=== PATIENT | female | born 1955 | race Asian ===

== ENCOUNTER 2020-05-11 15:24 | Outpatient (REF) | payer MEDICARE, OTHER, SELFPAY ==
[2020-05-11 16:26] LABS: MANUAL DIFF FLAG NO
[2020-05-11 16:31] LABS: Basophils Percent Auto 0.7 % (0-2); Eosinophils Absolute Auto 0.1 X10*3/uL (0.0-0.4); Eosinophils Percent Auto 2.1 % (0-4); Hematocrit 36.9 % (37-47); Hemoglobin 12.2 g/dl (12.0-16.0); Lymphocytes Absolute Auto 1.4 X10*3/uL (1.2-4.9); Lymphocytes Percent Auto 48.3 % (20-40); Mean Corpuscular HGB Conc 33.1 g/dl (31.0-35.0); Mean Corpuscular Hemoglobin 29.9 pg (27.0-33.0); Mean Corpuscular Volume 90.4 fL (80-98); Mean Platelet Volume 9.4 fL (9.4-12.3); Monocytes Absolute Auto 0.4 X10*3/uL (0.1-1.2); Monocytes Percent Auto 14.7 % (2-11); Neutrophils Percent Auto 34.2 % (45-73); Platelet Count 185 X10*3/uL (160-400); Red Blood Count 4.08 X10*6/uL (4.20-5.50); White Blood Count 2.9 X10*3/uL (4.8-10.8)
[2020-05-11 16:47] LABS: Alanine Aminotransferase 21 U/L (0-31); Albumin Level 4.3 g/dL (3.5-5.0); Alkaline Phosphatase 60 U/L (39-117); Anion Gap 11 (12-20); Aspartate Amino Transferase 29 U/L (5-31); Bilirubin Total 0.4 mg/dL (0.0-1.0); Blood Urea Nitrogen 16 mg/dL (9-16); C Reactive Protein 0.05 mg/dL (< or = 0.50); Calcium 9.1 mg/dL (8.4-10.2); Carbon Dioxide 25 mmol/L (22-29); Chloride 105 mmol/L (96-108); Estimated Glomerular Filt Rate > 60; Glucose Random 92 mg/dL (60-115); Sodium 137 mmol/L (135-145); Total Protein 8.3 g/dL (6.5-8.0)
[2020-05-11 17:10] LABS: Erythrocyte Sedimentation Rate 25 MM/HR (0-20)
== END 2020-05-11 15:25 | disposition home or self-care (01) ==
LOC: HO.LAB 15:24
PROVIDERS: PCP Internal Medicine; Visit Provider Student in an Organized Health Care Education/Training Program
DX: M35.00 Sjogren syndrome, unspecified (principal); Z79.899 Other long term (current) drug therapy
CPT/HCPCS: 36415; 80053; 85025; 85652; 86140; 99212

== ENCOUNTER → 2020-10-14 15:13 | Outpatient (BNVA) | payer MEDICARE, SELFPAY | PROVIDERS: PCP Internal Medicine; Visit Provider Student in an Organized Health Care Education/Training Program | DX: M35.00 Sjogren syndrome, unspecified (principal) | CPT/HCPCS: 99212 ==

== ENCOUNTER 2020-10-15 07:14 | Outpatient (REF) | payer MEDICARE, SELFPAY ==
[2020-10-15 08:11] LABS: MANUAL DIFF FLAG NO
[2020-10-15 08:19] LABS: Basophils Percent Auto 0.7 % (0-2); Eosinophils Absolute Auto 0.1 X10*3/uL (0.0-0.4); Eosinophils Percent Auto 3.3 % (0-4); Hematocrit 39.1 % (37-47); Hemoglobin 12.8 g/dl (12.0-16.0); Imm Gran Abs Auto 0.01 X10*3/uL (0.00-0.03); Imm Gran Pct Auto 0.3 % (0.0-0.4); Lymphocytes Absolute Auto 1.3 X10*3/uL (1.2-4.9); Lymphocytes Percent Auto 43.9 % (20-40); Mean Corpuscular HGB Conc 32.7 g/dl (31.0-35.0); Mean Corpuscular Hemoglobin 29.8 pg (27.0-33.0); Mean Corpuscular Volume 90.9 fL (80-98); Mean Platelet Volume 9.3 fL (9.4-12.3); Monocytes Absolute Auto 0.5 X10*3/uL (0.1-1.2); Monocytes Percent Auto 17.2 % (2-11); Neutrophils Absolute Auto 1.1 X10*3/uL (2.0-8.3); Neutrophils Percent Auto 34.6 % (45-73); Platelet Count 175 X10*3/uL (160-400); Red Cell Distribution Width 13.3 % (11.0-16.0)
[2020-10-15 08:55] LABS: Alanine Aminotransferase 30 U/L (0-31); Albumin Level 4.3 g/dL (3.5-5.0); Alkaline Phosphatase 52 U/L (39-117); Anion Gap 10 (12-20); Aspartate Amino Transferase 29 U/L (5-31); Bilirubin Total 0.6 mg/dL (0.0-1.0); Blood Urea Nitrogen 14 mg/dL (9-16); C Reactive Protein 0.05 mg/dL (< or = 0.50); Calcium 9.5 mg/dL (8.4-10.2); Carbon Dioxide 27 mmol/L (22-29); Chloride 108 mmol/L (96-108); Estimated Glomerular Filt Rate > 60; Glucose Random 87 mg/dL (60-115); Sodium 141 mmol/L (135-145); Total Protein 8.3 g/dL (6.5-8.0)
[2020-10-15 09:00] LABS: Erythrocyte Sedimentation Rate 19 MM/HR (0-20)
== END 2020-10-15 07:15 | disposition home or self-care (01) ==
LOC: HO.LAB 07:14
PROVIDERS: PCP Internal Medicine; Visit Provider Student in an Organized Health Care Education/Training Program
DX: M35.00 Sjogren syndrome, unspecified (principal)
CPT/HCPCS: 36415; 80053; 85025; 85652; 86140

== ENCOUNTER 2020-10-22 07:33 | Outpatient (REF) | payer BC, SELFPAY ==
[2020-10-22 07:56] LABS: MANUAL DIFF FLAG NO
[2020-10-22 07:58] LABS: Basophils Percent Auto 0.4 % (0-2); Eosinophils Absolute Auto 0.1 X10*3/uL (0.0-0.4); Eosinophils Percent Auto 3.9 % (0-4); Hematocrit 39.1 % (37-47); Hemoglobin 12.6 g/dl (12.0-16.0); Lymphocytes Absolute Auto 1.2 X10*3/uL (1.2-4.9); Lymphocytes Percent Auto 43.1 % (20-40); Mean Corpuscular HGB Conc 32.2 g/dl (31.0-35.0); Mean Corpuscular Hemoglobin 29.4 pg (27.0-33.0); Mean Corpuscular Volume 91.4 fL (80-98); Mean Platelet Volume 9.4 fL (9.4-12.3); Monocytes Absolute Auto 0.4 X10*3/uL (0.1-1.2); Monocytes Percent Auto 15.3 % (2-11); Neutrophils Absolute Auto 1.1 X10*3/uL (2.0-8.3); Neutrophils Percent Auto 37.3 % (45-73); Platelet Count 174 X10*3/uL (160-400); Red Blood Count 4.28 X10*6/uL (4.20-5.50); Red Cell Distribution Width 13.2 % (11.0-16.0); White Blood Count 2.8 X10*3/uL (4.8-10.8)
[2020-10-22 08:26] LABS: Alanine Aminotransferase 21 U/L (0-31); Albumin Level 4.3 g/dL (3.5-5.0); Alkaline Phosphatase 52 U/L (39-117); Anion Gap 10 (12-20); Aspartate Amino Transferase 24 U/L (5-31); Bilirubin Total 0.5 mg/dL (0.0-1.0); Blood Urea Nitrogen 15 mg/dL (9-16); Calcium 9.1 mg/dL (8.4-10.2); Carbon Dioxide 27 mmol/L (22-29); Chloride 107 mmol/L (96-108); Cholesterol 201 mg/dL; Estimated Glomerular Filt Rate > 60; Glucose Fasting 89 mg/dL (60-99); HDL Cholesterol 54 mg/dL; LDL Cholesterol Calculated 123 mg/dl; Potassium 4.1 mmol/L (3.3-5.1); Sodium 140 mmol/L (135-145); Total Protein 8.3 g/dL (6.5-8.0); Triglycerides 122 mg/dL
[2020-10-22 10:04] LABS: Glucose Urine UA NEG (NEG); Leukocyte Esterase Urine NEG (NEG); Nitrite Urine NEG (NEG); Specific Gravity - Urine 1.015 (1.005-1.025); Urine Blood NEG (NEG); Urine Ketones NEG (NEG); Urine Protein NEG (NEG-TRACE)
[2020-10-22 10:06] LABS: Appearance Urine CLEAR; Color Urine YELLOW
== END 2020-10-22 07:34 | disposition home or self-care (01) ==
LOC: HO.LAB 07:33
PROVIDERS: PCP Internal Medicine; Visit Provider Internal Medicine
DX: Z00.00 Encounter for general adult medical examination without abnormal findings (principal); D72.820 Lymphocytosis (symptomatic); D70.9 Neutropenia, unspecified
CPT/HCPCS: 36415; 80053; 80061; 81003; 85025

== ENCOUNTER 2020-11-15 14:42 | Outpatient (REF) | payer BC, SELFPAY ==
--- NOTE | ~2020-11-15 | MM_ITS ---
EXAMINATION: BONE DENSITOMETRY CLINICAL INDICATION: Encounter for screening for osteoporosis. COMPARISON: Previous BD dated 10/30/2018 and baseline BD dated 01/12/2008. TECHNIQUE: Using a [employer] DXA System (software version: 13.1) manufactured by [employer], dual-energy x-ray absorptiometry was performed of the lumbar spine and left hip. The images are of good technical quality. Summary results are attached. FINDINGS: AP SPINE L1-L4: Current: BMD 0.979 g/cm2, Z-score 0.2, T-score -1.7, osteopenia, 0.2% increase from previous, 6.0% decrease from baseline (<5% change is not significant). Prior: BMD 0.977 g/cm2. Baseline: BMD 1.042 g/cm2. LEFT FEMUR, NECK: Current: BMD 0.663 g/cm2, Z-score -1.0, T-score -2.7, osteoporosis. Prior: BMD 0.878 g/cm2. Baseline: BMD 0.887 g/cm2. LEFT FEMUR, TOTAL: Current: BMD 0.620 g/cm2, Z-score -1.6, T-score -3.1, osteoporosis, 24.9% decrease from previous, 26.3% decrease from baseline (<5% change is not significant). Prior: BMD 0.826 g/cm2. Baseline: BMD 0.841 g/cm2. IDENTIFIED RISK FACTORS: Rheumatoid arthritis, osteoporosis, menopause, hysterectomy, bilateral oophorectomy. HISTORY OF FRACTURE: None listed. MEDICATIONS: Calcium or multivitamin. MM/XR DEXA axial skeleton IMPRESSION: 1. DIAGNOSIS: Osteoporosis based on the lowest T-score value of -3.1 in the total femur applying World Health Organization criteria. 2. 10-YEAR FRACTURE RISK PREDICTION, FRAX: Major osteoporotic fracture (clinical spine, forearm, hip or shoulder) 9.8%. Hip fracture 2.8%. 3. Treatment Recommendations: NOF guidelines recommend consideration for treatment in postmenopausal women and men age 50 and older presenting with the following: -A hip or vertebral (clinical or morphometric) fracture. -T-score less than or equal to -2.5 at the femoral neck or spine after appropriate evaluation to exclude secondary causes. -Low bone mass at the hip or spine and a 10-year fracture probability by FRAX of greater than or equal to 3% for hip fracture or greater than or equal to 20% for major osteoporotic fracture based on the [place] adapted WHO algorithm. 4. Other Recommendations: All treatment decisions require clinical judgment and consideration of individual patient factors, including patient preferences, comorbidities, previous drug use, risk factors not captured in the FRAX model (e.g. frailty, falls, vitamin D deficiency, increased bone turnover, interval significant decline in bone density) and possible under or overestimation of fracture risk by FRAX. Additional medical evaluation for secondary cause of low bone mineral density may be appropriate. FUTURE SCAN RECOMMENDATION: People with diagnosed cases of osteoporosis or at high risk for fracture should have regular bone mineral density tests. For patients eligible for Medicare, routine testing is allowed once every 2 years. The testing frequency can be increased to one year for patients who have rapidly progressing disease, those who are receiving or discontinuing medical therapy to restore bone mass, or have additional risk factors.
== END 2020-11-15 14:43 | disposition home or self-care (01) ==
LOC: HO.MAMMO 14:42
PROVIDERS: PCP Internal Medicine; Visit Provider Internal Medicine
DX: Z13.820 Encounter for screening for osteoporosis (principal); M81.0 Age-related osteoporosis without current pathological fracture; M85.80 Other specified disorders of bone density and structure, unspecified site; M06.9 Rheumatoid arthritis, unspecified; Z78.0 Asymptomatic menopausal state; Z90.722 Acquired absence of ovaries, bilateral; Z98.890 Other specified postprocedural states; Z79.899 Other long term (current) drug therapy
CPT/HCPCS: 77080

== ENCOUNTER 2020-11-16 15:12 | Outpatient (REF) | payer BC, SELFPAY ==
--- NOTE | ~2020-11-16 | MM_ITS ---
EXAMINATION: MM SCREENING DIGITAL BREAST TOMOSYNTHESIS, BILATERAL CLINICAL INFORMATION: Screening. Asymptomatic. The lifetime risk of breast cancer based on the Tyrer-Cuzick Model is 9.6%. COMPARISON: Mammography: November 04, 2019 and studies dating back to March 05, 2007 TECHNIQUE: Digital breast tomosynthesis is performed in both the craniocaudal and mediolateral oblique views along with computer-aided detection (CAD). Synthesized 2D images are generated from the tomosynthesis. FINDINGS: The breasts are heterogeneously dense, which may obscure small masses (ACR BI-RADS breast composition Category c). There are no significant masses, abnormal calcifications, or other abnormalities. MM/MM tomosynthesis screening BI IMPRESSION: There are no significant changes from prior study. ASSESSMENT: BI-RADS 1: Negative RECOMMENDATION: Routine annual mammography screening. This patient's information was entered into a reminder system with a target due date for their next mammogram.
== END 2020-11-16 15:13 | disposition home or self-care (01) ==
LOC: HO.MAMMO 15:12
PROVIDERS: Visit Provider Internal Medicine
DX: Z12.31 Encounter for screening mammogram for malignant neoplasm of breast (principal)
CPT/HCPCS: 77063; 77067

== ENCOUNTER 2021-10-20 10:53 | Outpatient (REF) | payer BC, SELFPAY ==
[2021-10-20 11:07] LABS: Basophils Percent Auto 0.8 % (0-2); Eosinophils Percent Auto 1.5 % (0-4); Hematocrit 40.8 % (37.0-47.0); Hemoglobin 13.3 g/dl (12.0-16.0); Lymphocytes Absolute Auto 1.3 X10*3/uL (1.2-4.9); Lymphocytes Percent Auto 47.7 % (20-40); MANUAL DIFF FLAG SCAN; Mean Corpuscular HGB Conc 32.6 g/dl (31.0-35.0); Mean Corpuscular Hemoglobin 30.2 pg (27.0-33.0); Mean Corpuscular Volume 92.5 fL (80.0-98.0); Mean Platelet Volume 9.3 fL (9.4-12.3); Monocytes Absolute Auto 0.4 X10*3/uL (0.1-1.2); Monocytes Percent Auto 15.4 % (2-11); Neutrophils Absolute Auto 0.9 x10*3/uL (2.0-8.3); Neutrophils Percent Auto 34.6 % (45-73); Platelet Count 184 X10*3/uL (160-400); Red Blood Count 4.41 X10*6/uL (4.20-5.50); Red Cell Distribution Width 14.7 % (11.0-16.0); SCAN SMEAR FLAG 1; White Blood Count 2.7 X10*3/uL (4.8-10.8)
[2021-10-20 11:08] LABS: Appearance Urine Clear; Color Urine Yellow; Glucose Urine UA Negative (Negative); Leukocyte Esterase Urine Negative (Negative); Nitrite Urine Negative (Negative); Urine Blood Negative (Negative); Urine Ketones Negative (Negative); Urine Protein Negative (Neg-Trace)
[2021-10-20 11:13] LABS: Bacteria Urine None Seen (None Seen); Hyaline Casts Urine 0-2 /LPF (0-2); RBC Urine 0-2 /HPF (0-2); Squamous Epithelial Cell Urine 0-2 /HPF (0-2); WBC Urine 0-5 /HPF (0-5)
[2021-10-20 11:32] LABS: Alanine Aminotransferase 37 U/L (0-31); Albumin Level 4.2 g/dL (3.5-5.0); Alkaline Phosphatase 47 U/L (39-117); Anion Gap 13 (12-20); Aspartate Amino Transferase 37 U/L (5-31); Bilirubin Total 0.6 mg/dL (0.0-1.0); Blood Urea Nitrogen 15 mg/dL (9-16); Calcium 8.7 mg/dL (8.4-10.2); Carbon Dioxide 26 mmol/L (22-29); Chloride 106 mmol/L (96-108); Cholesterol 261 mg/dL; Estimated Glomerular Filt Rate > 60; Glucose Fasting 81 mg/dL (60-99); HDL Cholesterol 70 mg/dL; LDL Cholesterol Calculated 166 mg/dl; Potassium 4.4 mmol/L (3.3-5.1); Sodium 141 mmol/L (135-145); Total Protein 7.9 g/dL (6.5-8.0); Triglycerides 129 mg/dL
[2021-10-20 11:53] LABS: SLIDE REVIEW VERIFIED
== END 2021-10-20 10:54 | disposition home or self-care (01) ==
LOC: HO.LNP 10:53
PROVIDERS: Visit Provider Internal Medicine
DX: Z00.00 Encounter for general adult medical examination without abnormal findings (principal); D72.820 Lymphocytosis (symptomatic)
CPT/HCPCS: 80053; 80061; 81001; 85025

== ENCOUNTER 2021-11-27 15:08 | Outpatient (REF) | payer BC, SELFPAY ==
--- NOTE | ~2021-11-27 | MM_ITS ---
EXAMINATION: MM SCREENING DIGITAL BREAST TOMOSYNTHESIS, BILATERAL CLINICAL INFORMATION: Screening. Asymptomatic. The lifetime risk of breast cancer based on the Tyrer-Cuzick Model is 9%. COMPARISON: Mammography: 11/16/2020, 11/04/2019, 07/29/2018 TECHNIQUE: Digital breast tomosynthesis is performed in both the craniocaudal and mediolateral oblique views along with computer-aided detection (CAD). Synthesized 2D images are generated from the tomosynthesis. FINDINGS: There are scattered areas of fibroglandular density (ACR BI-RADS breast composition Category b). There are no significant masses, abnormal calcifications, or other abnormalities. There are incidental grouped dermal calcifications lower inner left breast and coarse dermal calcification lower inner right breast. The axilla are unremarkable. There are no significant changes. MM/MM tomosynthesis screening BI IMPRESSION: No mammographic evidence of malignancy. ASSESSMENT: BI-RADS 2: Benign RECOMMENDATION: Routine annual mammography screening. This patient's information was entered into a reminder system with a target due date for their next mammogram.
== END 2021-11-27 15:09 | disposition home or self-care (01) ==
LOC: HO.MAMMO 15:08
PROVIDERS: Visit Provider Dermatology
DX: Z12.31 Encounter for screening mammogram for malignant neoplasm of breast (principal)
CPT/HCPCS: 77063; 77067

== ENCOUNTER 2022-06-27 07:38 | Day surgery (SDC) | payer MEDICARE, SELFPAY ==
--- NOTE | 2022-06-26 08:56 | P.CONAN_ITS ---
Documented by User: Yesi Adair NP 06/26/22 08:57 HPI - Anesthesia Eval Consult details Narrative: 67yo F for Colonoscopy PMFSH Active Problems Active Problems: All Active Problems (Updated 06/22/22 @ 15:34 by Arlene Brooke, RN) Hypergammaglobulinemia (Acute) History of colonoscopy (Acute) Hemorrhoids (Acute) Rectal bleeding (Acute) Sjogrens syndrome (Acute) Past Medical History Medical History (Updated 06/22/22 @ 15:34 by Arlene Brooke, RN) Chronic leukopenia Sjogrens syndrome Family History Family History Brother Lung cancer Surgical History Surgical History (Updated 06/22/22 @ 15:34 by Arlene Brooke, LONA) Hx of colonoscopy Hx of hysterectomy Social History Social History Alcohol intake: never Patient Tobacco Use Status: Never used Tobacco e-Cigarette/Vaping Use: Never Used Use of substances other than those prescribed or required for medical reasons: No Are you DNR?: No Advance Directives: No Advance Directives Information Provided: Yes Meds Allergies Allergy/AdvReac Type Severity Reaction Status Date / Time sulfamethoxazole Allergy Severe ANAPHYLAXIS Verified 06/22/22 15:34 [From BACTRIM] trimethoprim [From BACTRIM] Allergy Severe ANAPHYLAXIS Verified 06/22/22 15:34 Sulfa (Sulfonamide Allergy Unknown mouth Verified 06/22/22 15:34 Antibiotics) swelling/pain Home Medications Medication Instructions Recorded Confirmed Last Taken Type multivitamin 1 tab PO DAILY 01/19/20 06/22/22 Unknown History diclofenac sodium 1 % topical gel 2 g topical QID 05/11/20 06/22/22 Unknown History (Voltaren) omega-3 fatty acids 1,000 mg 1,000 mg PO DAILY 05/11/20 06/22/22 Unknown History capsule (Fish Oil Concentrate) propylene glycol 0.6 % eye drops 1 drp ophthalmic (eye) BID PRN as 10/14/20 06/22/22 Unknown History (Systane Balance) directed alendronate 70 mg tablet 70 mg PO QWEEK 06/22/22 06/22/22 Unknown History valsartan 80 1 tab PO DAILY 06/22/22 06/22/22 06/27/22 History mg-hydrochlorothiazide 12.5 mg tablet amoxicillin 875 mg-potassium 1 tab PO Q12H 06/27/22 06/27/22 Unknown History clavulanate 125 mg tablet Exam Exam Date and Time: June 26, 2022 0856 Pertinent Lab Results Pertinent Lab Results: Laboratory Tests 10/20/21 10/20/21 07:15 07:15 WBC 2.7 L Hgb 13.3 Hct 40.8 Plt Count 184 Sodium 141 Potassium 4.4 Chloride 106 Carbon Dioxide 26 BUN 15 Creatinine 0.82 Assessment and Plan Assessment Anesthesia Assessment: Chart Reviewed Documented by User: Chani Toney MD 06/27/22 08:51 [facility] Past Medical History Medical History (Updated 06/22/22 @ 15:34 by Arlene Brooke RN) Chronic leukopenia Sjogrens syndrome Family History Family History Brother Lung cancer Family history of problems with anesthesia: No Surgical History Surgical History (Updated 06/22/22 @ 15:34 by Arlene Brooke RN) Hx of colonoscopy Hx of hysterectomy History of Problems with Anesthesia: No Social History Social History Alcohol intake: never Patient Tobacco Use Status: Never used Tobacco e-Cigarette/Vaping Use: Never Used Use of substances other than those prescribed or required for medical reasons: No Are you DNR?: No Advance Directives: No Advance Directives Information Provided: Yes Meds Allergies Allergy/AdvReac Type Severity Reaction Status Date / Time sulfamethoxazole Allergy Severe ANAPHYLAXIS Verified 06/22/22 15:34 [From BACTRIM] trimethoprim [From BACTRIM] Allergy Severe ANAPHYLAXIS Verified 06/22/22 15:34 Sulfa (Sulfonamide Allergy Unknown mouth Verified 06/22/22 15:34 Antibiotics) swelling/pain Home Medications Medication Instructions Recorded Confirmed Last Taken Type multivitamin 1 tab PO DAILY 01/19/20 06/22/22 Unknown History diclofenac sodium 1 % topical gel 2 g topical QID 05/11/20 06/22/22 Unknown History (Voltaren) omega-3 fatty acids 1,000 mg 1,000 mg PO DAILY 05/11/20 06/22/22 Unknown History capsule (Fish Oil Concentrate) propylene glycol 0.6 % eye drops 1 drp ophthalmic (eye) BID PRN as 10/14/20 06/22/22 Unknown History (Systane Balance) directed alendronate 70 mg tablet 70 mg PO QWEEK 06/22/22 06/22/22 Unknown History valsartan 80 1 tab PO DAILY 06/22/22 06/22/22 06/27/22 History mg-hydrochlorothiazide 12.5 mg tablet amoxicillin 875 mg-potassium 1 tab PO Q12H 06/27/22 06/27/22 Unknown History clavulanate 125 mg tablet Exam Airway Mallampati Class: II (perm bridge bottom right, too 2 front teeth caps) TM Dist: >3cm Neck ROM: Full Heart: rrr Lungs: cta Assessment and Plan Assessment Anesthesia Assessment: Anesthesia Plan Discussed Final Anesthetic Review Family History of Problems with Anesthesia: No History of Problems with Anesthesia: No NPO: Yes ASA Class: II Final Preanesthetic Review: No Changes in Pt Med Stat, Meds/Allgs Chart Reviewed and Consent Obtained/Reviewed Patient Risk: Intermediate Procedure Risk: Intermediate Anesthetic Plan Anesthetic Plan: MAC: Disposition: Standard PACU
[2022-06-27 08:09] VITALS: BMI 21.8
[2022-06-27 08:13] VITALS: BP 139/84; PULSE 85; RESP 18; TEMP 36.1; O2SAT 95
--- NOTE | 2022-06-27 08:26 | MHC.SHP ---
Pre-Procedural Eval Section A Date of Service: 06/27/22 Section B Chief Complaint: Screening Relevant Family History (Specify if Yes): No Relevant Social History: None Present Medications: see Short Stay Collaborative assessment Medical History: Significant History (Chronic leukopenia Sjogrens syndrome) History of Previous Operations: Relevant previous surgery/procedure and date(s) (hysterectomy) Allergies: Allergies Allergy/AdvReac Type Severity Reaction Status Date / Time sulfamethoxazole Allergy Severe ANAPHYLAXIS Verified 06/22/22 15:34 [From BACTRIM] trimethoprim [From BACTRIM] Allergy Severe ANAPHYLAXIS Verified 06/22/22 15:34 Sulfa (Sulfonamide Allergy Unknown mouth Verified 06/22/22 15:34 Antibiotics) swelling/pain Review of Systems Sugical H&P ROS: Negative: Constitution, Cardiovascular, Respiratory, Neurological, Psychiatric, Hem-Onc, Allergic/Immunologic, Gastrointestinal, Genitourinary, Musculoskeletal, Integumentary, Endocrine and Eyes/Ears/Nose/Throat Exam Surgical H&P Exam: Normal: HEENT, Normal: Heart, Normal: Lungs, Normal: Extremities, Normal: Abdomen, Normal: Skin and Normal: Neurological Plan Diagnosis/Plan: Unchanged I have reviewed the history and physical and performed a pertinent physical examination on my patient. No changes have occurred unless specified. Time Spent With Patient Time: Total time managing care of this patient today ____ minutes.
[2022-06-27 08:41] VITALS: BP 139/84; PULSE 85; RESP 18; TEMP 36.1; O2SAT 95
[2022-06-27] MEDS: Lactated Ringers 1,000 ML 100 ML IVCONT (08:46)
--- NOTE | 2022-06-27 09:29 | P.OP_ITS ---
Operative Note Operative Note Date of Service: 06/27/22 Narrative: Operative Information Procedure Description: Colonoscopy Indication: screening Anesthesia: MAC COLONOSCOPY Instrument: Olympus variable stiffness pediatric scope 190L Colonoscopy Monitoring: Vital signs and clinical assessment, continuous EKG monitoring, Pulse oximetry, Carbon Dioxide monitoring and blood pressure monitoring were done throughout the procedure. Colon withdrawal time was 8 minutes. Procedure: The patient was placed in the left lateral decubitis position and pre-procedure medications were administered. After a digital rectal examination of the ano-rectum, the video colonoscope was inserted into the rectum and advanced through the colon to the cecum/TI. The colonoscope was slowly withdrawn in a retrograde panoramic fashion and the colon mucosa was carefully examined including a retroflexed view of the rectum. Findings and interventions are described below. Procedure Difficulty: moderate due to tortuous colon Findings: Terminal Ileum-normal Cecum:normal Ascending Colon: normal Transverse Colon -normal Descending Colon:normal Sigmoid Colon: normal Rectum: Retroflexion with large internal and external hemorrhoids, at around 10 cm from anal verge on my way out the mucosa seemed v granular and edematous. I did not appreciate this going in, uncertain fi this was due to trauma as the colon was pretty tight. Biopsies were taken. Anorectum - normal Colon preparation: [place] Bowel Preparation Scale Right colon; 2 Transverse colon: 2 Left colon; 2 (0 = Unprepared colon segment with mucosa not seen due to solid stool that cannot be cleared. 1 = Portion of mucosa of the colon segment seen, but other areas of the colon segment not well seen due to staining, residual stool and/or opaque liquid. 2 = Minor amount of residual staining, small fragments of stool and/or opaque liquid, but mucosa of colon segment seen well. 3 = Entire mucosa of colon segment seen well with no residual staining, small fragments of stool or opaque liquid) Impression and Post Procedure Diagnosis: internal and external hemorrhoids abn mucosa rectum Plan: High fiber diet leaflet Avoid straining at stool, epsom salts and sitz bath, anusol supps or cream Repeat Colonoscopy in 10 years if biopsies are normal or earlier if clinically indicated refer Dr Lynn for hemorrhoids Above findings were reviewed with the patient and relevant handouts were provided if indicated.
[2022-06-27 09:35] VITALS: BP 82/49; PULSE 71; RESP 16; TEMP 35.6; O2SAT 98
[2022-06-27 09:50] VITALS: BP 123/77; PULSE 68; RESP 16; TEMP 35.6; O2SAT 99
[2022-06-27 10:13] VITALS: BP 113/65; PULSE 73; RESP 16; TEMP 35.6; O2SAT 98
== END 2022-06-27 10:45 | disposition home or self-care (01) ==
PROVIDERS: PCP Internal Medicine; Visit Provider Internal Medicine Gastroenterology
PROC: 0DJD8ZZ Inspection of Lower Intestinal Tract, Via Natural or Artificial Opening Endoscopic (ICD-10-PCS; CPT 45378; principal; 2022-06-27 09:10)
DX: Z12.11 Encounter for screening for malignant neoplasm of colon (principal); K63.89 Other specified diseases of intestine; K64.8 Other hemorrhoids; K64.4 Residual hemorrhoidal skin tags
CPT/HCPCS: 45380; 88305

== ENCOUNTER → 2022-07-11 14:32 | Outpatient (BNVA) | payer MEDICARE, SELFPAY | PROVIDERS: PCP Internal Medicine; Referring Provider Internal Medicine Gastroenterology; Visit Provider Surgery | DX: K64.8 Other hemorrhoids (principal); K64.4 Residual hemorrhoidal skin tags | CPT/HCPCS: 46600; 99202 ==

== ENCOUNTER 2022-07-31 07:44 | Day surgery (SDC) | payer MEDICARE, SELFPAY ==
--- NOTE | 2022-07-30 10:10 | HO.ANESPROP2 ---
HPI - Anesthesia Eval Consult details Narrative: 67yo F for Exam Under Anesthesia, Hemorrhoidectomy s/p colo 06/2022 with MAC PMFSH Active Problems Active Problems: All Active Problems (Updated 07/11/22 @ 14:57 by Yunior Lynn MD) Hypergammaglobulinemia (Acute) History of colonoscopy (Acute) Hemorrhoids (Acute) Rectal bleeding (Acute) Prolapsed hemorrhoids (Acute) Sjogrens syndrome (Acute) Past Medical History Medical History Chronic leukopenia Prolapsed hemorrhoids Sjogrens syndrome Family History Family History Brother Lung cancer Sister Breast cancer Sister Breast cancer Family history of problems with anesthesia: No Surgical History Surgical History (Updated 08/09/22 @ 11:03 by Kerri Castillo Lele) History of hemorrhoidectomy (~07/31/22) Hx of colonoscopy Hx of hysterectomy History of Problems with Anesthesia: No Social History Social History Alcohol intake: never Patient Tobacco Use Status: Never used Tobacco e-Cigarette/Vaping Use: Never Used Second Hand Smoke Exposure: No Meds Allergies Allergy/AdvReac Type Severity Reaction Status Date / Time sulfamethoxazole Allergy Severe ANAPHYLAXIS Verified 07/26/22 14:40 [From BACTRIM] trimethoprim [From BACTRIM] Allergy Severe ANAPHYLAXIS Verified 07/26/22 14:40 Sulfa (Sulfonamide Allergy Unknown mouth Verified 07/26/22 14:40 Antibiotics) swelling/pain Home Medications Medication Instructions Recorded Confirmed Last Taken Type multivitamin 1 tab PO DAILY 01/19/20 07/26/22 Unknown History diclofenac sodium 1 % topical gel 2 g topical QID 05/11/20 07/26/22 Unknown History (Voltaren) omega-3 fatty acids 1,000 mg 1,000 mg PO DAILY 05/11/20 07/26/22 Unknown History capsule (Fish Oil Concentrate) propylene glycol 0.6 % eye drops 1 drp ophthalmic (eye) BID PRN as 10/14/20 07/26/22 Unknown History (Systane Balance) directed alendronate 70 mg tablet 70 mg PO QWEEK 06/22/22 07/26/22 Unknown History valsartan 80 1 tab PO DAILY 06/22/22 07/26/22 06/27/22 History mg-hydrochlorothiazide 12.5 mg tablet Exam Exam Date and Time: July 30, 2022 101 Assessment and Plan Assessment Anesthesia Assessment: Chart Reviewed Final Anesthetic Review Family History of Problems with Anesthesia: No History of Problems with Anesthesia: No
[2022-07-31] VITALS (11 sets, daily range): BP systolic 128–162; BP diastolic 89–109; PULSE 69–84; RESP 12–16; TEMP 36.1–37; O2SAT 96–100; BMI 21.8
--- NOTE | 2022-07-31 09:00 | MHC.SHP ---
Pre-Procedural Eval Section A Date of Service: 07/31/22 Changes since office visit: No Cold of Flu in the past 2 weeks, No New Medical Problems, No Changes in Medication and No Patient answered all questions The History & Physical has been completed within 30 days and I have reviewed it.: Yes Section B Chief Complaint: Other hemorrhoids Allergies: Allergies Allergy/AdvReac Type Severity Reaction Status Date / Time sulfamethoxazole Allergy Severe ANAPHYLAXIS Verified 07/26/22 14:40 [From BACTRIM] trimethoprim [From BACTRIM] Allergy Severe ANAPHYLAXIS Verified 07/26/22 14:40 Sulfa (Sulfonamide Allergy Unknown mouth Verified 07/26/22 14:40 Antibiotics) swelling/pain Plan I have reviewed the history and physical and performed a pertinent physical examination on my patient. No changes have occurred unless specified. Time Spent With Patient Time: Total time managing care of this patient today ____ minutes.
--- NOTE | 2022-07-31 10:14 | W.PM.OPN ---
Operative Note Operative Note Date of Service: 07/31/22 Narrative: Preop diagnosis: Prolapsing hemorrhoids internal external Postop diagnosis: The same Procedure: Exam under anesthesia hemorrhoidectomy x2 columns Surgeon: Yunior Lynn MD The patient is a 67-year-old female with a long history of problems with hemorrhoids with prolapse and discomfort. She wanted to proceed with hemorrhoidectomy. She understood the technique of the planned procedure as well as the risks, benefits, and alternatives She was brought to the operating room and placed in prone trace-knife position under general anesthesia via endotracheal tube. The buttocks were retracted with wide tape laterally. The perianal area was prepped draped usual sterile fashion. A surgical time-out was done. The patient received Cefotan 2 g IV preoperatively Examination of the anal orifice revealed internal external hemorrhoids with prolapse. I infiltrated the perianal area with lidocaine 1%. I inserted the Brittany Stephenson retractor and examined the anal canal circumferentially. These mixed hemorrhoidal columns were noted on both the left and right side. There were no lesions seen. There was no fissure or induration. I applied a Schulz grasper at the hemorrhoidal column on the left to retract this out in the field. I made a [id number] stitch with a chromic 3-0 its pedicle past the dentate line. I made an incision around this hemorrhoidal column to the perianal skin using blade 15. And excise this hemorrhoidal column above the plane of sphincters using scissors. I closed this incision with running chromic 3-0 stitch. Hemostasis was observed Proceeded to do the same procedure on the larger hemorrhoidal column the right. I applied a Schulz grasper and this to retract this. I made a [id number] stitch at its pedicle using a chromic 3-0. I made an incision around this hemorrhoidal column to the perianal skin using blade 15. I excised this hemorrhoidal column with Metzenbaum scissors above the plane of the sphincters. I closed this incision with a running chromic 3-0 stitch. Additional hemostatic [id number] sutures were placed. Once hemostasis was confirmed, I infiltrated the perianal area with Marcaine 0.5% for postop analgesia. Applied a rolled Gelfoam into the anal canal for further hemostasis The patient was then turned supine and was extubated difficulty and was transferred to the recovery room with stable vital signs.
[2022-07-31] MEDS: fentaNYL citrate/PF 100 MCG/2 ML VIAL 25 MCG IVPUSH ×4 (10:47→11:02)
[2022-07-31] MEDS: oxyCODONE HCl Immed Release 5 MG TABLET PO (10:52)
[2022-07-31] MEDS: ondansetron HCL 4 MG/2 ML VIAL IVPUSH (10:58)
[2022-07-31] MEDS: Ketorolac Tromethamine 30 MG/ML VIAL 15 MG IVPUSH (11:02)
== END 2022-07-31 13:05 | disposition home or self-care (01) ==
PROVIDERS: PCP Internal Medicine; Visit Provider Surgery
PROC: (CPT 46261; principal; 2022-07-31 09:30)
PROC: (CPT 46261; 2022-07-31 09:30)
DX: K64.8 Other hemorrhoids (principal); K64.4 Residual hemorrhoidal skin tags; D72.818 Other decreased white blood cell count; M35.00 Sjogren syndrome, unspecified; Z79.899 Other long term (current) drug therapy; Z88.2 Allergy status to sulfonamides; Z88.8 Allergy status to other drugs, medicaments and biological substances
CPT/HCPCS: 46261; 88304; J0330; J1885; J2250; J2405; J2795; J3010

== ENCOUNTER → 2022-08-13 10:11 | Outpatient (BNVA) | payer MEDICARE, SELFPAY | PROVIDERS: Visit Provider Surgery | DX: Z48.815 Encounter for surgical aftercare following surgery on the digestive system (principal) | CPT/HCPCS: 99212 ==

== ENCOUNTER 2022-09-12 10:03 | Outpatient (AMB) | payer MEDICARE, SELFPAY ==
--- NOTE | 2022-09-12 10:13 | A.OFFVIS_ITS ---
Intake Vital Signs 09/12/22 10:16 Weight 116 lb BP 127/81 Blood Pressure Location Rt brachial Position Sitting Pulse 74 Intake Visit Reasons: 1 mth follow up hemorrhoidectomy Intake Note: This patient presents for a one month follow-up assessment status post hemorrhoidectomy. Patient denies complaints at this time. 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 Accompanied by: Self / Same As Patient Allergies sulfamethoxazole [From BACTRIM] Allergy (Severe, Verified 09/12/22 10:17) ANAPHYLAXIS trimethoprim [From BACTRIM] Allergy (Severe, Verified 09/12/22 10:17) ANAPHYLAXIS Sulfa (Sulfonamide Antibiotics) Allergy (Unknown, Verified 09/12/22 10:17) mouth swelling/pain Medication List - Last Reconciled 09/12/22 by Yunior Lynn MD alendronate 70 mg PO QWEEK diclofenac sodium 1% (Voltaren) 2 grams topical QID docusate sodium (Colace) 100 mg PO BID hydrocortisone-pramoxine 1-1 % (Proctofoam HC) 1 appl DE DAILY PRN ibuprofen 600 mg PO Q6H PRN methylcellulose (laxative) (Citrucel) 500 mg PO BID multivitamin 1 tab PO DAILY omega-3 fatty acids (Fish Oil Concentrate) 1,000 mg PO DAILY propylene glycol 0.6% (Systane Balance) 1 drp ophthalmic (eye) BID PRN valsartan-hydrochlorothiazide 80-12.5 mg 1 tab PO DAILY HPI 1 mth follow up hemorrhoidectomy HPI Details She is here for postop visit after hemorrhoidectomy done last July,. She says she now feels much better. She has no significant pain in the hemorrhoidectomy sites. She has good bowel movements. [facility] Medical History Chronic leukopenia Prolapsed hemorrhoids Sjogrens syndrome Surgical History History of hemorrhoidectomy (~07/31/22) Hx of colonoscopy Hx of hysterectomy Family History Brother Lung cancer Sister Breast cancer Sister Breast cancer Social History Alcohol intake: never Patient Tobacco Use Status: Never used Tobacco e-Cigarette/Vaping Use: Never Used Second Hand Smoke Exposure: No Review of Systems Const Denies chills and Denies fever(s) Card Denies chest pain, Denies dyspnea and Denies dyspnea on exertion Resp Denies cough, Denies dyspnea and Denies dyspnea on exertion GI Denies hematochezia and Denies change in bowel habits Denies hematuria Musc Denies back pain and Denies limited range of motion Neuro Denies focal weakness and Denies convulsions Psych Denies depression and Denies mood swings Physical Exam Vital Signs: Last Vital Signs Pulse 74 09/12/22 10:16 BP 127/81 09/12/22 10:16 Const General: comfortable and no acute distress GI Other: Rectal exam shows hemorrhoidectomy sites to be well-healed Assessment & Plan Assessment & Plan (1) Prolapsed hemorrhoids: Code(s): K64.8 - Other hemorrhoids Plan: Status post hemorrhoidectomy. Her surgical sites are now well healed. She does have residual hemorrhoids but I told her that unless these become problematic in the future, we can leave these alone. I had advised her on avoiding straining and constipation. She can follow up with me on a p.r.n. basis. Coding Level of Care Code Global (05118) Diagnoses Prolapsed hemorrhoids K64.8
[2022-09-12 10:16] VITALS: BP 127/81; PULSE 74
== END 2022-09-12 10:31 | disposition home or self-care (01) ==
PROVIDERS: PCP Internal Medicine; Visit Provider Surgery
DX: K64.8 Other hemorrhoids (principal)
CPT/HCPCS: 99024

== ENCOUNTER → 2022-09-12 10:03 | Outpatient (BNVA) | payer MEDICARE, SELFPAY | PROVIDERS: PCP Internal Medicine; Visit Provider Surgery ==

== ENCOUNTER 2022-10-30 11:47 | Outpatient (REF) | payer MEDICARE, SELFPAY ==
[2022-10-30 11:54] LABS: MANUAL DIFF FLAG NO
[2022-10-30 11:59] LABS: Basophils Percent Auto 0.6 % (0-2); Eosinophils Absolute Auto 0.1 X10*3/uL (0.0-0.4); Eosinophils Percent Auto 2.6 % (0-4); Hematocrit 36.6 % (37.0-47.0); Hemoglobin 11.8 g/dl (12.0-16.0); Imm Gran Abs Auto 0.01 X10*3/uL (0.00-0.03); Imm Gran Pct Auto 0.3 % (0.0-0.4); Lymphocytes Absolute Auto 1.7 X10*3/uL (1.2-4.9); Lymphocytes Percent Auto 47.6 % (20-40); Mean Corpuscular HGB Conc 32.2 g/dl (31.0-35.0); Mean Corpuscular Hemoglobin 29.1 pg (27.0-33.0); Mean Corpuscular Volume 90.4 fL (80.0-98.0); Mean Platelet Volume 9.5 fL (9.4-12.3); Monocytes Absolute Auto 0.5 X10*3/uL (0.1-1.2); Monocytes Percent Auto 13.8 % (2-11); Neutrophils Absolute Auto 1.2 x10*3/uL (2.0-8.3); Neutrophils Percent Auto 35.1 % (45-73); Platelet Count 183 X10*3/uL (160-400); Red Blood Count 4.05 X10*6/uL (4.20-5.50); Red Cell Distribution Width 14.6 % (11.0-16.0); White Blood Count 3.5 X10*3/uL (4.8-10.8)
[2022-10-30 12:07] LABS: Appearance Urine Clear; Color Urine Yellow; Glucose Urine UA Negative (Negative); Leukocyte Esterase Urine Trace (Negative); Nitrite Urine Negative (Negative); Specific Gravity - Urine 1.015 (1.005-1.025); UMIC TRIGGER UACC YES; Urine Blood Negative (Negative); Urine Ketones Negative (Negative); Urine Protein Negative (Neg-Trace)
[2022-10-30 12:11] LABS: Bacteria Urine None Seen (None Seen); Hyaline Casts Urine 0-2 /LPF (0-2); RBC Urine 0-2 /HPF (0-2); Squamous Epithelial Cell Urine 0-2 /HPF (0-2); WBC Urine 0-5 /HPF (0-5)
[2022-10-30 12:58] LABS: Alanine Aminotransferase 29 U/L (0-31); Albumin Level 3.9 g/dL (3.5-5.0); Alkaline Phosphatase 61 U/L (39-117); Anion Gap 9 (12-20); Aspartate Amino Transferase 37 U/L (5-31); Bilirubin Total 0.4 mg/dL (0.0-1.0); Blood Urea Nitrogen 14 mg/dL (9-16); Calcium 9.7 mg/dL (8.4-10.2); Carbon Dioxide 27 mmol/L (22-29); Chloride 107 mmol/L (96-108); Cholesterol 201 mg/dL (<200); Estimated Glomerular Filt Rate > 60; Glucose Fasting 88 mg/dL (60-99); HDL Cholesterol 39 mg/dL (>40); LDL Cholesterol Calculated 109 mg/dL (<100); Potassium 4.2 mmol/L (3.3-5.1); Sodium 139 mmol/L (135-145); Total Protein 8.7 g/dL (6.5-8.0); Triglycerides 267 mg/dL (<150)
== END 2022-10-30 11:48 | disposition home or self-care (01) ==
LOC: HO.LNP 11:47
PROVIDERS: Visit Provider Internal Medicine
DX: Z00.00 Encounter for general adult medical examination without abnormal findings (principal); I10 Essential (primary) hypertension; D72.820 Lymphocytosis (symptomatic)
CPT/HCPCS: 80053; 80061; 81001; 85025

== ENCOUNTER 2022-11-05 16:14 | Outpatient (REF) | payer MEDICARE, SELFPAY ==
[2022-11-05 17:15] LABS: Vitamin D 25-OH Total 72.1 ng/mL (>30)
== END 2022-11-05 16:15 | disposition home or self-care (01) ==
LOC: HO.LNP 16:14
PROVIDERS: Visit Provider Internal Medicine
DX: E55.9 Vitamin D deficiency, unspecified (principal)
CPT/HCPCS: 82306

== ENCOUNTER 2022-11-29 13:49 | Outpatient (REF) | payer MEDICARE, SELFPAY | END 2022-11-29 13:50 | disposition home or self-care (01) | LOC: HO.MAMMO 13:49 | PROVIDERS: Visit Provider Internal Medicine | DX: Z12.31 Encounter for screening mammogram for malignant neoplasm of breast (principal) | CPT/HCPCS: 77063; 77067 ==

== ENCOUNTER → 2022-11-29 14:00 | Outpatient (BNV) | payer MEDICARE, SELFPAY | PROVIDERS: Visit Provider Radiology Diagnostic Radiology | DX: Z12.31 Encounter for screening mammogram for malignant neoplasm of breast (principal) | CPT/HCPCS: 77063; 77067 ==

== ENCOUNTER → 2023-10-23 10:54 | Outpatient (RCR) | payer OTHER, SELFPAY ==
[2020-01-19 15:49] VITALS: BP 160/84; PULSE 78; TEMP 37; O2SAT 96
--- NOTE | 2020-01-19 15:58 | PM.HEMONCPN ---
Medical Summary - Medical Summary Date of Service: 01/19/20 Chief complaint: Follow-up Medical Summary: Long-standing history of Sjogren syndrome. Found to have elevated free kappa light chains in November 2017. Normal lambda light chain and normal kappa lambda ratio of 1.32. Serum electrophoresis in September 2017 showed increase in gammaglobulins, serum immunofixation showed no abnormal bands. No anemia, normal being functions and normal calcium levels. Elevated IgG level is ranging from 2 g to 4 g. No suppression of IgA, IgM mildly suppressed at 35 mg per DL. 24 hour urine immunofixation showed no monoclonal protein. Free kappa light chain slightly elevated at 28.4, kappa/lambda ratio normal 1.32. Interval History Interval history: Patient is here in follow-up. She is doing very well and has no complaints today. She remains on Plaquenil. She has no constitutional symptoms such as fever, chills, night sweats or unexplained weight loss. She has had no interim infections. Both she and her family have been doing well during this pandemic. She denies loss of appetite, fatigue or unexplained weight loss. Review of Systems - Constitutional Reports as per HPI, Reports no additional constitutional complaints [facility] Medical History: Medical History (Last Updated 01/19/20 @ 15:57 by Wilda Preciado RN) Sjogren's disease Smoking status: Never smoker Oncology Screenings - ECOG Performance Status ECOG Performance Status: 0 Home Medications and Allergies Home Medications Medication Instructions Recorded Confirmed Type hydroxychloroquine 1 tab PO DAILY 01/19/20 01/19/20 History lifitegrast [Xiidra] 1 drp OPHTHALMIC (EYE) BID 01/19/20 01/19/20 History multivitamin 1 tab PO DAILY 01/19/20 01/19/20 History Allergies Allergy/AdvReac Type Severity Reaction Status Date / Time sulfamethoxazole Allergy Severe ANAPHYLAXIS Verified 01/19/20 15:52 [From BACTRIM] trimethoprim [From BACTRIM] Allergy Severe ANAPHYLAXIS Verified 01/19/20 15:52 Sulfa (Sulfonamide Allergy Unknown mouth Verified 01/19/20 15:52 Antibiotics) swelling/pain Exam Vital signs: Vital Signs Temp 98.6 F 01/19/20 15:49 Pulse 78 01/19/20 15:49 BP 160/84 H 01/19/20 15:49 Pulse Ox 96 01/19/20 15:49 - Constitutional Present: no acute distress - Routine HEENT Exam Head: Present: normal inspection - Routine Neck Exam Present: full ROM, normal inspection - Routine Respiratory Exam Absent: respiratory distress - Routine Cardiovascular Exam Cardiovascular: Present: S1, S2 Progress Note: A/P (1) Hypergammaglobulinemia Status: Acute Assessment and plan: 1. This is a 64-year-old woman with Sjogren's syndrome presenting with hypergammaglobulinemia and mild leukopenia. There is no monoclonal protein on serum immunofixation, she has normal light chain ratio, no suppression of lambda light chains. Most likely, all of these are markers of inflammation from underlying autoimmune disease and not from plasma cell dyscrasia or primary bone marrow disorder. Serum electrophoresis and immunofixation was repeated in September 2019, this is stable and there is no monoclonal protein. She has mild leukopenia which could be related to her underlying autoimmune disorder as well as being on Plaquenil. No further hematological intervention necessary. She will follow-up as needed. - Time Spent With Patient Total time spent is greater than 50% in coordination of care (as documented) at patient's floor/unit and/or counseling patient: 15 - 24 minutes
--- NOTE | 2020-01-19 16:35 | MHC.HEMONC ---
Pt here for follow up with Dr Mendez. Bp was slightly elevated at 160/84, Dr Mendez aware. Pt has no c/o at this time. No further follow up needed at this time,
== END | disposition home or self-care (01) ==
LOC: HO.ONC 01-19 15:21
PROVIDERS: PCP Internal Medicine; Visit Provider Internal Medicine
DX: D89.2 Hypergammaglobulinemia, unspecified (principal); D72.819 Decreased white blood cell count, unspecified; M35.00 Sjogren syndrome, unspecified; Z79.899 Other long term (current) drug therapy
CPT/HCPCS: 99213

== ENCOUNTER 2023-11-05 11:49 | Outpatient (REF) | payer MEDICARE, SELFPAY ==
[2023-11-05 11:54] LABS: MANUAL DIFF FLAG NO
[2023-11-05 12:25] LABS: Basophils Percent Auto 0.6 % (0-2); Eosinophils Absolute Auto 0.1 X10*3/uL (0.0-0.4); Eosinophils Percent Auto 3.4 % (0-4); Hematocrit 38.5 % (37.0-47.0); Hemoglobin 12.5 g/dl (12.0-16.0); Imm Gran Abs Auto 0.01 X10*3/uL (0.00-0.03); Imm Gran Pct Auto 0.3 % (0.0-0.4); Lymphocytes Absolute Auto 1.5 X10*3/uL (1.2-4.9); Lymphocytes Percent Auto 43.1 % (20-40); Mean Corpuscular HGB Conc 32.5 g/dl (31.0-35.0); Mean Corpuscular Hemoglobin 29.9 pg (27.0-33.0); Mean Corpuscular Volume 92.1 fL (80.0-98.0); Mean Platelet Volume 9.5 fL (9.4-12.3); Monocytes Absolute Auto 0.5 X10*3/uL (0.1-1.2); Monocytes Percent Auto 14.9 % (2-11); Neutrophils Absolute Auto 1.3 x10*3/uL (2.0-8.3); Neutrophils Percent Auto 37.7 % (45-73); Platelet Count 199 X10*3/uL (160-400); Red Blood Count 4.18 X10*6/uL (4.20-5.50); Red Cell Distribution Width 13.8 % (11.0-16.0); White Blood Count 3.5 X10*3/uL (4.8-10.8)
[2023-11-05 12:27] LABS: Appearance Urine Clear; Color Urine Yellow; Glucose Urine UA Negative (Negative); Leukocyte Esterase Urine Trace (Negative); Nitrite Urine Negative (Negative); PH 5.5 (5.0-9.0); UMIC TRIGGER UACC YES; Urine Blood Negative (Negative); Urine Ketones Negative (Negative); Urine Protein Negative (Neg-Trace)
[2023-11-05 12:33] LABS: Bacteria Urine None Seen (None Seen); Hyaline Casts Urine 0-2 /LPF (0-2); RBC Urine 0-2 /HPF (0-2); Squamous Epithelial Cell Urine 0-2 /HPF (0-2); WBC Urine 0-5 /HPF (0-5)
[2023-11-05 13:01] LABS: Alanine Aminotransferase 25 U/L (0-31); Alkaline Phosphatase 54 U/L (39-117); Anion Gap 9 (12-20); Aspartate Amino Transferase 34 U/L (5-31); Bilirubin Total 0.4 mg/dL (0.0-1.0); Blood Urea Nitrogen 19 mg/dL (9-16); Calcium 9.3 mg/dL (8.4-10.2); Carbon Dioxide 26 mmol/L (22-29); Chloride 107 mmol/L (96-108); Cholesterol 204 mg/dL (<200); Estimated Glomerular Filt Rate > 60; Glucose Fasting 87 mg/dL (60-99); HDL Cholesterol 38 mg/dL (>40); LDL Cholesterol Calculated 115 mg/dL (<100); Potassium 4.1 mmol/L (3.3-5.1); Sodium 138 mmol/L (135-145); Total Protein 9.2 g/dL (6.5-8.0); Triglycerides 257 mg/dL (<150)
[2023-11-05 13:10] LABS: Vitamin D 25-OH Total 60.9 ng/mL (>30)
== END 2023-11-05 11:50 | disposition home or self-care (01) ==
LOC: HO.LNP 11:49
PROVIDERS: Visit Provider Internal Medicine
DX: Z00.00 Encounter for general adult medical examination without abnormal findings (principal); D72.820 Lymphocytosis (symptomatic); I10 Essential (primary) hypertension; E55.9 Vitamin D deficiency, unspecified
CPT/HCPCS: 80053; 80061; 81001; 82306; 85025

== ENCOUNTER 2023-12-05 13:00 | Outpatient (REF) | payer MEDICARE, SELFPAY ==
--- NOTE | ~2023-12-05 | MM_ITS ---
EXAMINATION: MM SCREENING DIGITAL BREAST TOMOSYNTHESIS, BILATERAL CLINICAL INFORMATION: Screening. Asymptomatic. COMPARISON: Mammography: Comparison is made with available priors TECHNIQUE: Digital breast mammography with tomosynthesis is performed in both the craniocaudal and mediolateral oblique views along with computer-aided detection (CAD). FINDINGS: The breasts are heterogeneously dense, which may obscure small masses (ACR BI-RADS breast composition Category c). There are no significant masses, abnormal calcifications, or other abnormalities. MM/MM tomosynthesis screening BI IMPRESSION: No mammographic evidence of malignancy. ASSESSMENT: BI-RADS BI-RADS 1 - Negative RECOMMENDATION: Routine annual mammography screening. 1 year F/U This examination should not preclude the clinical evaluation of a suspicious palpable abnormality. This patient's information was entered into a reminder system with a target due date for their next mammogram. Electronically signed by: Tigist Grant DO 12/17/2023 12:14 PM EDT
--- NOTE | ~2023-12-05 | MM_ITS ---
EXAMINATION: BONE DENSITOMETRY CLINICAL INDICATION: Age-related osteoporosis without current pathological fracture. COMPARISON: This is the patient's baseline examination. TECHNIQUE: Using a [employer] DXA System (software version: 13.1) manufactured by [employer], dual-energy x-ray absorptiometry was performed of the lumbar spine and left hip. The images are of good technical quality. Summary results are attached. FINDINGS: LEFT FEMUR, NECK: BMD 0.863 g/cm2, Z-score 0.6, T-score -1.3, osteopenia. LEFT FEMUR, TOTAL: BMD 0.818 g/cm2, Z-score 0.1, T-score -1.5, osteopenia. AP SPINE L1-L4: BMD 0.980 g/cm2, Z-score 0.3, T-score -1.7, osteopenia. IDENTIFIED RISK FACTORS: Rheumatoid arthritis, osteoporosis, menopause, hysterectomy, bilateral oophorectomy. HISTORY OF FRACTURE: None listed. MEDICATIONS: Calcium supplements or multivitamin, vitamin D, bisphosphonate. MM/XR DEXA axial skeleton IMPRESSION: 1. DIAGNOSIS: Osteopenia based on the lowest T-score value of -1.7 in the lumbar spine applying World Health Organization criteria. 2. 10-YEAR FRACTURE RISK PREDICTION, FRAX: Not performed in this patient on estrogen or bone building treatments. 3. Treatment Recommendations: NOF guidelines recommend consideration for treatment in postmenopausal women and men age 50 and older presenting with the following: -A hip or vertebral (clinical or morphometric) fracture. -T-score less than or equal to -2.5 at the femoral neck or spine after appropriate evaluation to exclude secondary causes. -Low bone mass at the hip or spine and a 10-year fracture probability by FRAX of greater than or equal to 3% for hip fracture or greater than or equal to 20% for major osteoporotic fracture based on the [place] adapted WHO algorithm. 4. Other Recommendations: All treatment decisions require clinical judgment and consideration of individual patient factors, including patient preferences, comorbidities, previous drug use, risk factors not captured in the FRAX model (e.g. frailty, falls, vitamin D deficiency, increased bone turnover, interval significant decline in bone density) and possible under or overestimation of fracture risk by FRAX. Additional medical evaluation for secondary cause of low bone mineral density may be appropriate. FUTURE SCAN RECOMMENDATION: People with diagnosed cases of osteoporosis or at high risk for fracture should have regular bone mineral density tests. For patients eligible for Medicare, routine testing is allowed once every 2 years. The testing frequency can be increased to one year for patients who have rapidly progressing disease, those who are receiving or discontinuing medical therapy to restore bone mass, or have additional risk factors. Electronically signed by: Joni Amaya MD 12/06/2023 02:37 PM EDT
== END 2023-12-05 13:01 | disposition home or self-care (01) ==
LOC: HO.MAMMO 13:00
PROVIDERS: PCP Internal Medicine; Visit Provider Internal Medicine
DX: Z12.31 Encounter for screening mammogram for malignant neoplasm of breast (principal); M81.0 Age-related osteoporosis without current pathological fracture
CPT/HCPCS: 77063; 77067; 77080

== ENCOUNTER → 2023-12-05 13:00 | Outpatient (BNV) | payer MEDICARE, SELFPAY | PROVIDERS: PCP Internal Medicine; Visit Provider Internal Medicine | DX: Z12.31 Encounter for screening mammogram for malignant neoplasm of breast (principal) | CPT/HCPCS: 77063; 77067 ==

== ENCOUNTER 2024-11-05 12:25 | Outpatient (REF) | payer MEDICARE, SELFPAY ==
--- OUTSIDE RECORDS SUMMARY | 2023-11-05 03:15 | XMS_ITS ---
Author Organization Anton Reyes MD Address [address] [place], [place] [id number] Care Team Providers Care It Teacher Name Role Phone Anton Reyes Primary Care Provider Results Component Value Reference Range Notes Complete Blood Count Auto Di ff Reviewed date:11/05/2023 06:01:24 PM Interpretation: Performing Lab:[facility], [address] [place] [phone] Notes/Report: White Blood Count 3.5 4.8-10.8 X10*3/uL Red Blood Count 4.18 4.20-5.50 X10*6/uL Hemoglobin 12.5 12.0-16.0 g/dl Hematocrit 38.5 37.0-47.0 % Mean Corpuscular Volume 92.1 80.0-98.0 fL Mean Corpuscular Hemoglobin 29.9 27.0-33.0 pg Mean Corpuscular HGB Conc 32.5 31.0-35.0 g/dl Red Cell Distribution Width 13.8 11.0-16.0 % Platelet Count 199 160-400 X10*3/uL Mean Platelet Volume 9.5 9.4-12.3 fL Neutrophils Percent Auto 37.7 45-73 % Imm Gran Pct Auto 0.3 0.0-0.4 % Lymphocytes Percent Auto 43.1 20-40 % Monocytes Percent Auto 14.9 2-11 % Eosinophils Percent Auto 3.4 0-4 % Basophils Percent Auto 0.6 0-2 % NRBC Pct Auto 0.0 0.0-0.2 /100WBC Neutrophils Absolute Auto 1.3 2.0-8.3 x10*3/u L Imm Gran Abs Auto 0.01 0.00-0.03 X10*3/uL Lymphocytes Absolute Auto 1.5 1.2-4.9 X10*3/u L Monocytes Absolute Auto 0.5 0.1-1.2 X10*3/uL Eosinophils Absolute Auto 0.1 0.0-0.4 X10*3/u L Basophils Absolute Auto 0.0 0.0-0.2 X10*3/uL NRBC Abs Auto 0.000 0.0-0.012 X10*3/uL Comprehensive [place]. Panel Fa st Reviewed date:11/06/2023 08:46:34 AM Interpretation: Performing Lab:[facility], [address] [place] [phone] Notes/Report: Sodium 138 135-145 mmol/L Potassium 4.1 3.3-5.1 mmol/L Chloride 107 96-108 mmol/L Carbon Dioxide 26 22-29 mmol/L Anion Gap 9 12-20 Blood Urea Nitrogen 19 9-16 mg/dL Creatinine 0.80 0.5-1.4 mg/dL Estimated Glomerular Filt Rate > 60 NOTE: For -[place]aur[place] individuals, multiply the result by 1.210. Chronic Kidney Disease: Estimated GFR < 60 mL/min/1.73m2 Severe Kidney Disease: Estimated GFR < 15 mL/min/1.73m2 Glucose Fasting 87 60-99 mg/dL Calcium 9.3 8.4-10.2 mg/dL Bilirubin Total 0.4 0.0-1.0 mg/dL Aspartate Amino Transferase 34 5-31 U/L Alanine Aminotransferase 25 0-31 U/L Total Protein 9.2 6.5-8.0 g/dL Albumin Level 4.0 3.5-5.0 g/dL Alkaline Phosphatase 54 39-117 U/L Lipid Panel Reviewed date:11/05/2023 05:58:32 PM Interpretation: Performing Lab:[facility], [address] [place] [phone] Notes/Report: Triglycerides 257 <150 mg/dL Desirable Triglyceride: less than 150 mg/dL Borderline High Triglyceride 150-199 mg/dL High Triglyceride: 200-499 mg/dL Very High Triglyceride: greater than or equal to 5OO mg/dL Cholesterol 204 <200 mg/dL Desirable Cholesterol: less than 200 mg/dL Borderline High Cholesterol: 200-239 mg/dL High Cholesterol: greater than 239 mg/dL LDL Cholesterol Calculated 115 <100 mg/dL Desirable LDL: less than 100 mg/dL Near Optimal/Above Optimal LDL: 110-129 mg/dL Borderline High LDL: 130-159 mg/dL High LDL: 160-189 mg/dL Very High LDL: greater than or equal to 190 mg/dL HDL Cholesterol 38 >40 mg/dL Desirable HDL: greater than 40 mg/dL Note: This HDL assay may give artificially low results in patients with liver disease. Vitamin D 25-OH Total Reviewed date:11/05/2023 05:57:29 PM Interpretation: Performing Lab:[facility], [address] [place] [phone] Notes/Report: Vitamin D 25-OH Total 60.9 >30 ng/mL Health Based Reference Values* < 20 ng/mL Deficient 20-30 ng/mL Insufficient > 30 ng/mL Sufficient *Jethro CRISOSTOMO. N Engl J Med. 2007;357:266-280 Care must be taken in interpreting Vitamin D results from different laboratories and methodologies. Published data demonstrated that results from patients undergoing hemodialysis may show a negative bias when tested with various automated 25-OH vitamin D assays when compared to LC-MS/MS. When testing samples from patients whose predominant form of Vitamin D is Vitamin D2, such as patients receiving Vitamin D2 supplementation, results that are subtherapeutic should be confirmed with another method such as LC-MS/MS. UA ClnCatch+Micro w/rflx Cul t Reviewed date:11/06/2023 08:45:14 AM Interpretation: Performing Lab:[facility], [address] [place] [phone] Notes/Report: Urine, Clean Catch Color Urine Yellow Appearance Urine Clear PH 5.5 5.0-9.0 Glucose Urine UA Negative Negative mg/dL Urine Blood Negative Negative Specific [place] - Urine 1.010 1.005-1.025 Urine Protein Negative Neg-Trace mg/dL Urine Ketones Negative Negative mg/dL Nitrite Urine Negative Negative Leukocyte Esterase Urine Trace Negative RBC Urine 0-2 0-2 /HPF WBC Urine 0-5 0-5 /HPF Squamous Epithelial Cell Urine 0-2 0-2 /HPF Bacteria Urine None Seen None Seen Hyaline Casts Urine 0-2 0-2 /LPF REASON FOR VISIT YEARLY FASTING LABS Immunizations Vaccine Route Administration Date Status Comme nts Influenza High Dose IM Intramuscular 11/05/2023 Administer ed Encounters Encounter Location Date Provider Diagnosis Anton Reyes MD [address] [place] [address] [address] [place], [place] [id number] 11/05/2023 Anton Reyes Annual physical exam Z00.00 ; Encounter for immunization Z23 ; Lymphocytosis (symptomatic) D72.820 ; Essential hypertension I10 and Vitamin D deficiency E55.9 Assessments Encounter Date Diagnosis (ICD Code) Assessment Notes Treatment Notes Treatment Clinical Notes Section Notes 11/05/2023 Annual physical exam (ICD-10 - Z00.00) 11/05/2023 Encounter for immunization (ICD-10 - Z23) 11/05/2023 Lymphocytosis (symptomatic) (ICD-10 - D72.820) 11/05/2023 Essential hypertension (ICD-10 - I10) 11/05/2023 Vitamin D deficiency (ICD-10 - E55.9) Plan Of Treatment Next Appt Details Provider Name:Anton Pineda ier, 11/12/2024 02:30:00 PM, [address] [place] [address], [address], [place], [place], [phone], Progress Notes * Leilani YOUNG MDOB:[birth year] (69 yo F)Acc No.[id number]:11/05/2023 Progress Note Patient: Chantell BENITEZ Leilani CHAPA M Provider: Darling Reyes MD :1955 A ge:68 Y S ex:Female Date:11/05/2023 Address:[address] [place], [place] [id number] Subjective: * Chief Complaints: * 1 . YEARLY FASTING LABS. * Medical History: Objective: * Vitals: Assessment: * Assessment: 1. E ncounter for immunization - Z23 (Primary) 2 . A nnual physical exam - Z00.00 3 . L ymphocytosis (symptomatic) - D72.820 4 . E ssential hypertension - I10 5 . V itamin D deficiency - E55.9 Plan: * Treatment: 2. L ymphocytosis (symptomatic) L AB: Complete Blood Count Auto Diff (Collection Date & Time - 11/05/2023 07:15 AM) L AB: Comprehensive [place]. Panel Fast (Collection Date & Time - 11/05/2023 07:15 AM) L AB: Lipid Panel (Collection Date & Time - 11/05/2023 07:15 AM) L AB: Vitamin D 25-OH Total (Collection Date & Time - 11/05/2023 07:15 AM) L AB: UA ClnCatch+Micro w/rflx Cult (Collection Date & Time - 11/05/2023 07:15 AM) 3. E ssential hypertension L AB: Complete Blood Count Auto Diff (Collection Date & Time - 11/05/2023 07:15 AM) L AB: Comprehensive [place]. Panel Fast (Collection Date & Time - 11/05/2023 07:15 AM) L AB: Lipid Panel (Collection Date & Time - 11/05/2023 07:15 AM) L AB: Vitamin D 25-OH Total (Collection Date & Time - 11/05/2023 07:15 AM) L AB: UA ClnCatch+Micro w/rflx Cult (Collection Date & Time - 11/05/2023 07:15 AM) 4. V itamin D deficiency L AB: Complete Blood Count Auto Diff (Collection Date & Time - 11/05/2023 07:15 AM) L AB: Comprehensive [place]. Panel Fast (Collection Date & Time - 11/05/2023 07:15 AM) L AB: Lipid Panel (Collection Date & Time - 11/05/2023 07:15 AM) L AB: Vitamin D 25-OH Total (Collection Date & Time - 11/05/2023 07:15 AM) L AB: UA ClnCatch+Micro w/rflx Cult (Collection Date & Time - 11/05/2023 07:15 AM) * Immunizations: Influenza High Dose : 0.5 mL (Dose No:1) (Route: Intramuscular) given by Arlene Mcintyre , Office Staff on Left Deltoid * Procedure Codes: 9 0662 FLU VACC PRSV FREE INC ANTIG, 63277 IMMUNIZATION ADMIN, 67882 VENIPUNCT, ROUTINE* * * The named appointment provid er may or may not be the originator of this progress note, and it is not deemed complete until electronically signed by the appointment provider. Sign off status: Pending * Provider: Darling Reyes MD Date: 11/05/2023 Generated for Yana cantu/Nelly/Anup on: 11/05/2024 04:39 PM EDT
--- OUTSIDE RECORDS SUMMARY | 2023-11-12 10:30 | XMS_ITS ---
Author Organization nAton Reyes MD Address [address] [place], [place] [id number] Care Team Providers Care Weave Defect Charting Clerk Name Role Phone Anton Reyes Primary Care Provider Allergies Allergen (clinical drug ingredient) Drug/Non Drug Allergy documented on EMR Reaction Allergy Type Onset Date Status sulfamethoxazole / trimethoprim Bactrim rash Drug Allergy Active REASON FOR VISIT ANNUAL EXAM Medications Medication SIG (Take, Route, Frequency, Duration) Notes Start Date End Date Status Alaway 0.025 % 1 drop into affected eye Ophthalmic Twice a day Not-Takin lalitha Naprosyn 500 MG 1 tablet as needed Orally every 12 hrs for 90 days 02/14/2012 Not-Taking Diprolene AF 0.05 % 1 application to affected area Externally Once a day for 14 days 07/16/2011 Not-Takin g ProAir HFA 108 (90 Base) MCG/ACT 2 puffs as needed Inhalation every 4 hrs for 30 days 08/31/2013 Not-Taking Flonase 50 MCG/ACT 1 spray in each nost ril Nasally Once a day for 30 day(s) 07/06/2014 Not-Taking Valsartan-hydroCHLOROthi azide 80-12.5 MG TAKE ONE TABLET BY MOUTH EVERY DAY for 30 Active Mupirocin Calcium 2 % 1 application Exte rnally Twice a day for 5 day(s) 05/15/2022 Active Alendronate Sodium 70 MG TAKE ONE TABLET BY MOUTH ONCE A WEEK. TAKE 30 MINUTE BEFORE FIRST FOOD & BEVERAGE OF THE DAY. TAKE WITH 8 OZ OF WATER for 28 Active Xiidra 5 % 1 drop into affected eye Ophthalmic Twice a day Active Social History Tobacco Use: Social History Observation Description Date Details (start date - stop date) Never Smoker NA - NA Tobacco Use/Smoking Question Answer Notes Patient is a nonsmoker Additional Findings: Tobacco Non-User Cu rrent non-smoker, currently using no form of tobacco Alcohol Screen Question Answer Notes Did you have a drink containing alcohol in the p ast year? No Points 0 Interpretation Negative Vital Signs Blood pressure systolic 130 mm Hg 11/12/19 24 Blood pressure diastolic 64 mm Hg 024 Height 64 in 11/12/2023 Weight 122 lbs 11/12/2023 BMI 20.94 kg/m2 11/12/2023 Encounters Encounter Location Date Provider Diagnosis Anton Reyes MD [address] [place] [address] Drive [address] [place] [phone] 11/12/2023 Anton Reyes Age-related osteoporosis without current pathological fracture M81.0 ; Annual physical exam Z00.00 ; Vitamin D deficiency E55.9 ; Neutropenia, unspecified type D70.9 ; Essential hypertension I10 ; Depression screening Z13.31 and Colon cancer screening Z12.11 Assessments Encounter Date Diagnosis (ICD Code) Assessment Notes Treatment Notes Treatment Clinical Notes Section Notes 11/12/2023 Age-related osteoporosis without current pathological fracture (ICD-10 - M81.0) order faxed to [facility] dept 11/12/2023 Annual physical exam (ICD-10 - Z00.00) labs reviewed and discussed with patient 11/12/2023 Vitamin D deficiency (ICD-10 - E55.9) taking calcium with vit d and level is 60. enciuraged to continue walking, will continue current regiment 11/12/2023 Neutropenia, unspecified type (ICD-10 - D70.9) stable, will continue to monitor 11/12/2023 Essential hypertension (ICD-10 - I10) doing well on one half tab, at goal, will continue current regiment regiment 11/12/2023 Depression screening (ICD-10 - Z13.31) negative screen 11/12/2023 Colon cancer screening (ICD-10 - Z12.11) sent home with stool cards will retun to office when complete Plan Of Treatment Treatment Notes Assessment Notes Age-related osteoporosis wit hout current pathological fracture order faxed to [facility] dept Annual physical exam labs reviewed and d iscussed with patient Vitamin D deficiency taking calcium with vit d and level is 60. enciuraged to continue walking, will continue current regiment Neutropenia, unspecified type stable, wi ll continue to monitor Essential hypertension doing well on one half tab, at goal, will continue current regiment regiment Depression screening negative screen Colon cancer screening sent home with st ool cards will retun to office when complete Pending Test Test Name Order Date BONE DENSITY DEXA 11/12/2023 Next Appt Details Follow Up: 6 Months, Reason: Provider Name:Anton Pineda ier, 11/12/2024 02:30:00 PM, [address], [address], [place], [place], [phone], Progress Notes * Leilani YOUNG MDOB:[birth year] (68 yo F)Acc No.[id number]:11/12/2023 Progress Notes Patient: Chantell Leilani Hernandes Provider: Lalitha Reyes MD :1955 A ge:68 Y S ex:Female Date:11/12/2023 Address:[address] [place], [place] [phone] Subjective: * Chief Complaints: * A NNUAL EXAM * HPI: D epression Screening: PHQ-9 L ittle interest or pleasure in doing things N ot at all, F eeling down, depressed, or hopeless N ot at all, T rouble falling or staying asleep, or sleeping too much N ot at all, F eeling tired or having little energy N ot at all, P oor appetite or overeating N ot at all, F eeling bad about yourself or that you are a failure, or have let yourself or your family down N ot at all, T rouble concentrating on things, such as reading the newspaper or watching television N ot at all, M oving or speaking so slowly that other people could have noticed; or the opposite, being so fidgety or restless that you have been moving around a lot more than usual N ot at all, T houghts that you would be better off or of hurting yourself in some way N ot at all, T otal Score 0 . I nterpretation and Intervention D epression Screening Findings N egative, F ollow-Up for Depression : review of PHQ-9 found negative result, no follow-up needed. patient is a 68 yo female here for annual visit with review of recent labs and follow up of chronic issues,. C ommunication Needs: Communication Needs D oes the patient have a hearing impairment N o, D oes the patient have a vision impairment? Y es, I f yes, what is the vision impairment? G lasses, D oes the patient have a cognition impairment? N o. F all Risk: History H ave you had any falls with injury in the past year? N o, H ave you had two or more falls in the past year? N o. S VEENA Questions: SDOH Questions I n the past year have you been worried about losing housing? N o, I n the past year have you or any family members you live with been unable to get any of the following when it was really needed? Check all that apply: N one. * ROS: G eneral/Constitutional: Patient denies f atigue , headache. C hange in appetite?denies. C hills d enies. F ever d enies. O phthalmologic: Blurred vision d enies. D ischarge d enies. P ain d enies. E NT: Patient denies d ecreased sense of smell , any loss of taste , sore throat. D ecreased hearing d enies. S ore throat d enies. S wollen glands d enies. E ndocrine: Cold intolerance d enies. E xcessive thirst d enies. H eat intolerance d enies. W eight loss d enies. R espiratory: Cough d enies. S hortness of breath at rest d enies. S hortness of breath with exertion d enies. W heezing d enies. C ardiovascular: Chest pain at rest d enies. C hest pain with exertion?denies. I rregular heartbeat d enies. S hortness of breath d enies. ? G astrointestinal: Abdominal pain d enies. C hange in bowel habits d enies. D iarrhea d enies. N ausea d enies. R ectal bleeding d enies. V omiting d enies . G enitourinary: Blood in urine d enies. D ifficulty urinating d enies. F requent urination d enies. U rinary incontinence D enies. M usculoskeletal: Patient denies m uscle aches. P ainful joints d enies. W eakness d enies. P eripheral Vascular: Patient denies r ed and blue toes. S kin: Dry skin d enies. I tching d enies. D enies?Mole(s), changes in moles, new moles or any lesions of concern. D enies P hotosensitivity. R gorge d enies. N eurologic: Dizziness d enies. F ainting d enies. H eadache?denies. * Medical History: * Surgical History: * Hospitalization/Major Diagno stic Procedure: * Family History: F ather: 90 yrs, diagnosed with Alzheimer disease. M other: 45 yrs, diagnosed with Cancer. 2 brother(s) , 3 sister(s) . 1 son(s) , 1 daughter(s) - healthy. . 2 brothers, 3 sisters - healthy, Denies mental health/substance abuse family history, No pertinent family medical history, Denies mental health/substance abuse family history. * Social History: T obacco Use: T obacco Use/Smoking P atient is a n onsmoker, A dditional Findings: Tobacco Non-User C urrent non-smoker, currently using no form of tobacco. D rugs/Alcohol: A lcohol Screen D id you have a drink containing alcohol in the past year? N o, P oints 0 , I nterpretation N egative. M iscellaneous: C affeine: yes, frequency:, 1 cup per day. Children: yes. no Community involvements. Exercise: yes, 2-3 times per week walks everyday for 1 hour. Home smoke detector use: yes. Living with: spouse. Marital status: . Occupation: weeks/months/years, works full-time. Pets: none. no Travel outside of the [place]. * Medications: T akingXiidra 5 % Solution 1 drop into affected eye Ophthalmic Twice a dayMupirocin Calcium 2 % Cream 1 application Externally Twice a dayAlendronate Sodium 70 MG Tablet TAKE ONE TABLET BY MOUTH ONCE A WEEK. TAKE 30 MINUTE BEFORE FIRST FOOD & BEVERAGE OF THE DAY. TAKE WITH 8 OZ OF WATER Valsartan-hydroCHLOROthiazide 80-12.5 MG Tablet TAKE ONE TABLET BY MOUTH EVERY DAY Taking Xiidra 5 % Solution 1 drop into affected eye Ophthalmic Twice a dayTaking Mupirocin Calcium 2 % Cream 1 application Externally Twice a dayTaking Alendronate Sodium 70 MG Tablet TAKE ONE TABLET BY MOUTH ONCE A WEEK. TAKE 30 MINUTE BEFORE FIRST FOOD & BEVERAGE OF THE DAY. TAKE WITH 8 OZ OF WATER Taking Valsartan-hydroCHLOROthiazide 80-12.5 MG Tablet TAKE ONE TABLET BY MOUTH EVERY DAY Not-Taking/PRNAlaway 0.025 % Solution 1 drop into affected eye Ophthalmic Twice a dayFlonase 50 MCG/ACT Suspension 1 spray in each nostril Nasally Once a dayDiprolene AF 0.05 % Cream 1 application to affected area Externally Once a dayProAir HFA 108 (90 Base) MCG/ACT Aerosol Solution 2 puffs as needed Inhalation every 4 hrsNaprosyn 500 MG Tablet 1 tablet as needed Orally every 12 hrsMedication List reviewed and reconciled with the patientNot-Taking/PRN Alaway 0.025 % Solution 1 drop into affected eye Ophthalmic Twice a dayNot-Taking/PRN Flonase 50 MCG/ACT Suspension 1 spray in each nostril Nasally Once a dayNot-Taking/PRN Diprolene AF 0.05 % Cream 1 application to affected area Externally Once a dayNot-Taking/PRN ProAir HFA 108 (90 Base) MCG/ACT Aerosol Solution 2 puffs as needed Inhalation every 4 hrsNot- Taking/PRN Naprosyn 500 MG Tablet 1 tablet as needed Orally every 12 hrsMedication List reviewed and reconciled with the patient * Allergies: B actrim: scooter[Allergies Verified] Objective: * Vitals: H t: 64, Wt:122, BMI:20.94, BP:130/64. * P ast Orders: L ab:Complete Blood Count Auto Diff (Order Date - 11/05/2023) (Collection Date - 11/05/2023) Value Reference Range White Blood Count 3.5 L 4.8-10.8 - X10*3/uL Red Blood Count 4.18 L 4.20-5.50 - X10*6/uL Hemoglobin 12.5 12.0-16.0 - g/dl Hematocrit 38.5 37.0-47.0 - % Mean Corpuscular Volume 92.1 80.0-98.0 - fL Mean Corpuscular Hemoglobin 29.9 27.0-33.0 - pg Mean Corpuscular HGB Conc 32.5 31.0-35.0 - g/ dl Red Cell Distribution Width 13.8 11.0-16.0 - % Platelet Count 199 160-400 - X10*3/uL Mean Platelet Volume 9.5 9.4-12.3 - fL Neutrophils Percent Auto 37.7 L 45-73 - % Imm Gran Pct Auto 0.3 0.0-0.4 - % Lymphocytes Percent Auto 43.1 H 20-40 - % Monocytes Percent Auto 14.9 H 2-11 - % Eosinophils Percent Auto 3.4 0-4 - % Basophils Percent Auto 0.6 0-2 - % NRBC Pct Auto 0.0 0.0-0.2 - /100WBC Neutrophils Absolute Auto 1.3 L 2.0-8.3 - x10* 3/uL Imm Gran Abs Auto 0.01 0.00-0.03 - X10*3/uL Lymphocytes Absolute Auto 1.5 1.2-4.9 - X10* 3/uL Monocytes Absolute Auto 0.5 0.1-1.2 - X10*3/ uL Eosinophils Absolute Auto 0.1 0.0-0.4 - X10* 3/uL Basophils Absolute Auto 0.0 0.0-0.2 - X10*3/ uL NRBC Abs Auto 0.000 0.0-0.012 - X10*3/uL L ab:Comprehensive [place]. Panel Fast (Order Date - 11/05/2023) (Collection Date - 11/05/2023) Value Reference Range Sodium 138 135-145 - mmol/L Bilirubin Total 0.4 0.0-1.0 - mg/dL Aspartate Amino Transferase 34 H 5-31 - U/L Alanine Aminotransferase 25 0-31 - U/L Total Protein 9.2 H 6.5-8.0 - g/dL Albumin Level 4.0 3.5-5.0 - g/dL Alkaline Phosphatase 54 39-117 - U/L Potassium 4.1 3.3-5.1 - mmol/L Chloride 107 96-108 - mmol/L Carbon Dioxide 26 22-29 - mmol/L Anion Gap 9 L 12-20 - Blood Urea Nitrogen 19 H 9-16 - mg/dL Creatinine 0.80 0.5-1.4 - mg/dL Estimated Glomerular Filt Rate > 60 - Glucose Fasting 87 60-99 - mg/dL Calcium 9.3 8.4-10.2 - mg/dL L ab:Lipid Panel (Order Date - 11/05/2023) (Collection Date - 11/05/2023) Value Reference Range Triglycerides 257 H <150 - mg/dL Cholesterol 204 H <200 - mg/dL LDL Cholesterol Calculated 115 H <100 - mg/dL HDL Cholesterol 38 L >40 - mg/dL L ab:Vitamin D 25-OH Total (Order Date - 11/05/2023) (Collection Date - 11/05/2023) Value Reference Range Vitamin D 25-OH Total 60.9 >30 - ng/mL L ab:UA ClnCatch+Micro w/rflx Cult (Order Date - 11/05/2023) (Collection Date - 11/05/2023) Value Reference Range Color Urine Yellow - Appearance Urine Clear - PH 5.5 5.0-9.0 - Glucose Urine UA Negative Negative - mg/dL Urine Blood Negative Negative - Specific [place] - Urine 1.010 1.005-1.025 - Urine Protein Negative Neg-Trace - mg/dL Urine Ketones Negative Negative - mg/dL Nitrite Urine Negative Negative - Leukocyte Esterase Urine Trace A Negative - RBC Urine 0-2 0-2 - /HPF WBC Urine 0-5 0-5 - /HPF Squamous Epithelial Cell Urine 0-2 0-2 - /HP F Bacteria Urine None Seen None Seen - Hyaline Casts Urine 0-2 0-2 - /LPF * Examination: G eneral Examination: GENERAL APPEARANCE: w ell developed, well nourished, in no acute distress. HEAD: n ormocephalic, atraumatic. EYES: p upils equal, round, reactive to light and accommodation, sclera non-icteric. EARS: n ormal. ORAL CAVITY: m ucosa moist. THROAT: c lear. NECK/THYROID: n chloé supple, full range of motion, no cervical lymphadenopathy, no bruits. SKIN: w arm and dry, no suspicious lesions. HEART: r egular rate and rhythm, S1, S2 normal, no murmurs.? LUNGS: c lear to auscultation bilaterally. BREASTS: N o mass, no lump. ABDOMEN: s oft, nontender, nondistended, bowel sounds present, normal, no organomegaly , no masses palpable. RECTAL EXAM: t ight anus from hemmorhid surgery will send with card. FEMALE GENITOURINARY: h ad hysterctomy. EXTREMITIES: n o clubbing, cyanosis, or edema. NEUROLOGIC: n onfocal, motor strength normal upper and lower extremities, sensory exam intact. Assessment: * Assessment: 1. A nnual physical exam - Z00.00 (Primary) 2 . A ge-related osteoporosis without current pathological fracture - M81.0 3 . V itamin D deficiency - E55.9 4 . N eutropenia, unspecified type - D70.9 5 . E ssential hypertension - I10 6 . D epression screening - Z13.31 7 . C olon cancer screening - Z12.11 Plan: * Treatment: 2. A ge-related osteoporosis without current pathological fracture I maging: BONE DENSITY DEXA Notes: order faxed to [facility] dept 3. V itamin D deficiency Notes: taking calcium with vit d and level is 60. enciuraged to continue walking, will continue current regiment 4. N eutropenia, unspecified type Notes: stable, will continue to monitor 5. E ssential hypertension Notes: doing well on one half tab, at goal, will continue current regiment regiment 6. D epression screening Notes: negative screen 7. C olon cancer screening Notes: sent home with stool cards will retun to office when complete * Procedure Codes: * Follow Up: 6 Months * * Sign off status: Completed true * Provider: Lalitha Reyes MD Date: 11/12/2023 Generated for Printi alondra/Nelly/eTransmitting on: 11/05/2024 04:39 PM EDT History and Physical Notes * HPI (History of Present Illness) Category Sub-Category Detail Notes Category Not es Depression Screening PHQ-9 Little inte rest or pleasure in doing things: Not at all patient is a 68 yo female here for annual visit with review of recent labs and follow up of chronic issues, Feeling down, depressed, or hopeless: No t at all Trouble falling or staying asleep, or sl eeping too much: Not at all Feeling tired or having little energy: N ot at all Poor appetite or overeating: Not at all Feeling bad about yourself o r that you are a failure, or have let yourself or your family down: Not at all Trouble concentrating on thi ngs, such as reading the newspaper or watching television: Not at all Moving or speaking so slowly that other people could have noticed; or the opposite, being so fidgety or restless that you have been moving around a lot more than usual: Not at all Thoughts that you would be b mukund off or of hurting yourself in some way: Not at all Total Score: 0 Interpretation and Intervention Depression Yaya ortiz Findings: Negative Follow-Up for Depression: : review of PH Q-9 found negative result, no follow-up needed SDOH Questions SDOH Questions In the past year have you been worried about losing housing?: No In the past year have you or any family members you live with been unable to get any of the following when it was really needed? Check all that apply:: None Fall Risk History Have you had any falls with injury i n the past year?: No Have you had two or more falls in the st year?: No Communication Needs Communication Needs Does the patient have a hearing impairment: No Does the patient have a vision impairmen t?: Yes If yes, what is the vision impairment?: Glasses Does the patient have a cognition impair ment?: No Examination Category Sub-Category Detail Notes Category Not es General Examination GENERAL APPEARANCE: well dev eloped, well nourished, in no acute distress HEAD: normocephalic, atrau matic EYES: pupils equal, round, reactive to light and accommodation, sclera non-icteric EARS: normal THROAT: clear NECK/THYROID: neck supple, full ra nge of motion, no cervical lymphadenopathy, no bruits HEART: regular rate and rhy thm, S1, S2 normal, no murmurs LUNGS: clear to auscultatio n bilaterally ABDOMEN: soft, nontender, non distended, bowel sounds present, normal, no organomegaly , no masses palpable NEUROLOGIC: nonfocal, motor stre ngth normal upper and lower extremities, sensory exam intact SKIN: warm and dry, no mata picious lesions EXTREMITIES: no clubbing, cyanosi s, or edema BREASTS: No mass, no lump RECTAL EXAM: tight anus from hemm orhid surgery will send with card FEMALE GENITOURINARY: had hysterctomy ORAL CAVITY: mucosa moist
--- OUTSIDE RECORDS SUMMARY | 2023-11-14 10:51 | XMS_ITS ---
Author Organization Anton Reyes MD Address [address] [place] [phone] Care Team Providers Care Fiscal Manager Name Role Phone Anton Reyes Primary Care Provider [phone] Results Component Value Reference Range Notes Occult Blood, Stool, Guaiac Reviewed date:12/27/2023 03:08:44 PM Interpretation:Negative Performing Lab: Notes/Report: Negative Occult Blood, Stool, Guaiac Neg REASON FOR VISIT Stool card Encounters Encounter Location Date Provider Diagnosis Anton Reyes MD [address] [place] [address] [place] [phone] 11/14/2023 Anton Reyes Colon cancer screening Z12.11 Assessments Encounter Date Diagnosis (ICD Code) Assessment Notes Treatment Notes Treatment Clinical Notes Section Notes 11/14/2023 Colon cancer screening (ICD-10 - Z12.11) Plan Of Treatment Next Appt Details Provider Name:Anton Pineda ier, 11/12/2024 02:30:00 PM, [address] [place] [address], [address] [facility], [place], [place], [phone], Progress Notes * Leilani YOUNG MDOB:[birth year] (68 yo F)Acc No.[id number]:11/14/2023 Patient: Chantell Leilani Hernandes :1955 A ge:68 Y S ex:Female Address:[address] [place] [id number] Subjective: * Chief Complaints: * S tool card * Medical History: * Surgical History: * Hospitalization/Major Diagno stic Procedure: * Medications: Objective: Assessment: * Assessment: 1. C lindsay cancer screening - Z12.11 (Primary) Plan: * Treatment: Value Reference Range O ccult Blood, Stool, Guaiac Neg * Procedure Codes: 8 2270 TEST FOR BLOOD, FECES * true * Date: Generated for Yana cantu/Nelly/Bouchrasmitting on: 0 11/05/2024 04:39 PM EDT
--- OUTSIDE RECORDS SUMMARY | 2024-05-12 10:00 | XMS_ITS ---
Author Organization Anton Reyes MD Address [address] [place], [place] [id number] Care Team Providers Care Cloth Dyeing Range Tender Name Role Phone Anton Reyes Primary Care Provider Allergies Allergen (clinical drug ingredient) Drug/Non Drug Allergy documented on EMR Reaction Allergy Type Onset Date Status sulfamethoxazole / trimethoprim Bactrim rash Drug Allergy Active REASON FOR VISIT 6 months Medications Medication SIG (Take, Route, Frequency, Duration) Notes Start Date End Date Status Diprolene AF 0.05 % 1 application to affected area Externally Once a day for 14 days 07/16/2011 Not-Takin lalitha ProAir HFA 108 (90 Base) MCG/ACT 2 puffs as needed Inhalation every 4 hrs for 30 days 08/31/2013 Not-Taking Alendronate Sodium 70 MG TAKE ONE TABLET BY MOUTH ONCE A WEEK. TAKE 30 MINUTE BEFORE FIRST FOOD & BEVERAGE OF THE DAY. TAKE WITH 8 OZ OF WATER Active Naprosyn 500 MG 1 tablet as needed Orally every 12 hrs for 90 days 02/14/2012 Not-Taking Valsartan-hydroCHLOROthi azide 80-12.5 MG TAKE ONE TABLET BY MOUTH EVERY DAY Active [place] 0.025 % 1 drop into affected eye Ophthalmic Twice a day Not-Takin g Flonase 50 MCG/ACT 1 spray in each nost ril Nasally Once a day for 30 day(s) 07/06/2014 Not-Taking Mupirocin Calcium 2 % 1 application Exte rnally Twice a day for 5 day(s) 05/15/2022 Active Xiidra 5 % 1 drop into affected eye Ophthalmic Twice a day Active Vital Signs Blood pressure systolic 104 mm Hg 05/13/19 25 Blood pressure diastolic 72 mm Hg 025 Height 64 in 05/12/2024 Weight 128 lbs 05/12/2024 BMI 21.97 kg/m2 05/12/2024 weight is up 6 pounds since 11-12-23 Encounters Encounter Location Date Provider Diagnosis Anton Reyes MD [address] [place] [address] [place] [phone] 05/12/2024 Anton Reyes Essential hypertension I10 and Age-related osteoporosis without current pathological fracture M81.0 Assessments Encounter Date Diagnosis (ICD Code) Assessment Notes Treatment Notes Treatment Clinical Notes Section Notes 05/12/2024 Essential hypertension (ICD-10 - I10) well controlled, will continue current regiment 05/12/2024 Age-related osteoporosis without current pathological fracture (ICD-10 - M81.0) doing much better on the meds and with weights, will continue current regiment Plan Of Treatment Medication Medication Name Sig Start Date Stop Date Notes Alendronate Sodium 70 MG TAKE ONE TABLET BY MOUTH ONCE A WEEK. TAKE 30 MINUTE BEFORE FIRST FOOD & BEVERAGE OF THE DAY. TAKE WITH 8 OZ OF WATER Valsartan-hydroCHLOROthiazid e 80-12.5 MG TAKE ONE TABLET BY MOUTH EVERY DAY Treatment Notes Assessment Notes Essential hypertension well controlled, will continue current regiment Age-related osteoporosis wit hout current pathological fracture doing much better on the meds and with weights, will continue current regiment Next Appt Details Provider Name:Anton Pineda ier, 11/12/2024 02:30:00 PM, [address] [place] [address], [address], [place], [place], [phone], Progress Notes * Leilani YOUNG MDOB:[birth year] (69 yo F)Acc No.[id number]:05/12/2024 Progress Notes Patient: Chantell BENITEZ Leilani CHAPA Provider: Lalitha Reyes MD :1955 A ge:69 Y S ex:Female Date:05/12/2024 Address:[address] [place], [place] [id number] Subjective: * Chief Complaints: * 6 months * HPI: S ymptom(s): patient is a 69 yo female here for 6 month follow up visit/ doing well. walking outside. doing ellipticql at home in winter. * ROS: G eneral/Constitutional: Denies C hills. D enies F atigue. D enies F ever. D enies H eadache. E NT: Patient denies d ecreased sense of smell, any loss of taste, sore throat. D enies S ore throat. R espiratory: Denies S hortness of breath at rest. D enies S hortness of breath with exertion. G astrointestinal: Denies D iarrhea. D enies N ausea. M usculoskeletal: Patient denies m uscle aches. P eripheral Vascular: Patient denies r ed and blue toes. * Medical History: * Surgical History: * Hospitalization/Major Diagno stic Procedure: * Medications: T akingXiidra 5 % Solution 1 drop into affected eye Ophthalmic Twice a day Mupirocin Calcium 2 % Cream 1 application Externally Twice a day Alendronate Sodium 70 MG Tablet TAKE ONE TABLET BY MOUTH ONCE A WEEK. TAKE 30 MINUTE BEFORE FIRST FOOD & BEVERAGE OF THE DAY. TAKE WITH 8 OZ OF WATER Valsartan-hydroCHLOROthiazide 80- 12.5 MG Tablet TAKE ONE TABLET BY MOUTH EVERY DAY Taking Xiidra 5 % Solution 1 drop into affected eye Ophthalmic Twice a day Taking Mupirocin Calcium 2 % Cream 1 application Externally Twice a day Taking Alendronate Sodium 70 MG Tablet TAKE ONE TABLET BY MOUTH ONCE A WEEK. TAKE 30 MINUTE BEFORE FIRST FOOD & BEVERAGE OF THE DAY. TAKE WITH 8 OZ OF WATER Taking Valsartan-hydroCHLOROthiazide 80-12.5 MG Tablet TAKE ONE TABLET BY MOUTH EVERY DAY Not-Taking/PRNAlaway 0.025 % Solution 1 drop into affected eye Ophthalmic Twice a day Flonase 50 MCG/ACT Suspension 1 spray in each nostril Nasally Once a day Diprolene AF 0.05 % Cream 1 application to affected area Externally Once a day ProAir HFA 108 (90 Base) MCG/ACT Aerosol Solution 2 puffs as needed Inhalation every 4 hrs Naprosyn 500 MG Tablet 1 tablet as needed Orally every 12 hrs Medication List reviewed and reconciled with the patientNot-Taking/PRN Alaway 0.025 % Solution 1 drop into affected eye Ophthalmic Twice a day Not-Taking/PRN Flonase 50 MCG/ACT Suspension 1 spray in each nostril Nasally Once a day Not-Taking/PRN Diprolene AF 0.05 % Cream 1 application to affected area Externally Once a day Not-Taking/PRN ProAir HFA 108 (90 Base) MCG/ACT Aerosol Solution 2 puffs as needed Inhalation every 4 hrs Not-Taking/PRN Naprosyn 500 MG Tablet 1 tablet as needed Orally every 12 hrs Medication List reviewed and reconciled with the patient * Allergies: B actrim: rashyes[Allergies Verified] Objective: * Vitals: H t: 64, Wt: 128, BMI:21.97, BP:104/72, Wt-k.06. weight is up 6 pounds since 11-12-23. * Examination: G eneral Examination: GENERAL APPEARANCE: a lert, well hydrated, in no distress, female. HEAD: n ormocephalic. SKIN: g ood turgor. HEART: r egular rate and rhythm, no murmurs, rubs, gallops.? LUNGS: n o wheezes, rales, rhonchi, good air movement, clear to auscultation bilaterally. Assessment: * Assessment: 1. E ssential hypertension - I10 (Primary) 2 . A ge-related osteoporosis without current pathological fracture - M81.0 Plan: * Treatment: 2. A ge-related osteoporosis without current pathological fracture Continue Alendronate Sodium Tablet, 70 MG, TAKE ONE TABLET BY MOUTH ONCE A WEEK. TAKE 30 MINUTE BEFORE FIRST FOOD & BEVERAGE OF THE DAY. TAKE WITH 8 OZ OF WATER. Notes: doing much better on the meds and with weights, will continue current regiment * Procedure Codes: * * Sign off status: Completed true * Provider: Lalitha Reyes MD Date: 0 05/12/2024 Generated for Yana cantu/Nelly/Souravitting on: 0 11/05/2024 04:40 PM EDT History and Physical Notes * HPI (History of Present Illness) Category Sub-Category Detail Notes Category Not es Symptom(s) patient is a 69 yo female here for 6 month follow up visit/ doing well. walking outside. doing ellipticql at home in winter Examination Category Sub-Category Detail Notes Category Not es General Examination GENERAL APPEARANCE: alert, w ell hydrated, in no distress, female HEAD: normocephalic HEART: regular rate and rhy thm, no murmurs, rubs, gallops LUNGS: no wheezes, rales, r honchi, good air movement, clear to auscultation bilaterally SKIN: good turgor
--- OUTSIDE RECORDS SUMMARY | 2024-11-05 04:00 | XMS_ITS ---
Author Organization Anton Reyes MD Address [address] [place], [place] [phone] Care Team Providers Care Reel Tender Name Role Phone Anton Reyes Primary Care Provider Results Component Value Reference Range Notes UA ClnCatch+Micro w/rflx Cul t (Not yet reviewed by provider) Interpretation: Performing Lab:[facility], [address] [place] [phone] Notes/Report: [id number] Urine, Clean Catch Color Urine Yellow Appearance Urine Clear PH 6.0 5.0-9.0 Glucose Urine UA Negative Negative mg/dL Urine Blood Negative Negative Specific [place] - Urine 1.010 1.005-1.025 Urine Protein Negative Neg-Trace mg/dL Urine Ketones Negative Negative mg/dL Nitrite Urine Negative Negative Leukocyte Esterase Urine Negative Negative RBC Urine 0-2 0-2 /HPF WBC Urine 0-5 0-5 /HPF Squamous Epithelial Cell Urine 0-2 0-2 /HPF Bacteria Urine None Seen None Seen Hyaline Casts Urine 0-2 0-2 /LPF Complete Blood Count Auto Di ff Reviewed date:11/05/2024 01:02:05 PM Interpretation: Performing Lab:[facility], [address] [place] [phone] Notes/Report: White Blood Count 3.2 4.8-10.8 X10*3/uL Red Blood Count 4.12 4.20-5.50 X10*6/uL Hemoglobin 12.4 12.0-16.0 g/dl Hematocrit 37.7 37.0-47.0 % Mean Corpuscular Volume 91.5 80.0-98.0 fL Mean Corpuscular Hemoglobin 30.1 27.0-33.0 pg Mean Corpuscular HGB Conc 32.9 31.0-35.0 g/dl Red Cell Distribution Width 14.0 11.0-16.0 % Platelet Count 198 160-400 X10*3/uL Mean Platelet Volume 9.5 9.4-12.3 fL Neutrophils Percent Auto 33.1 45-73 % Imm Gran Pct Auto 0.3 0.0-0.4 % Lymphocytes Percent Auto 48.1 20-40 % Monocytes Percent Auto 15.7 2-11 % Eosinophils Percent Auto 2.2 0-4 % Basophils Percent Auto 0.6 0-2 % NRBC Pct Auto 0.0 0.0-0.2 /100WBC Neutrophils Absolute Auto 1.1 2.0-8.3 x10*3/u L Imm Gran Abs Auto 0.01 0.00-0.03 X10*3/uL Lymphocytes Absolute Auto 1.6 1.2-4.9 X10*3/u L Monocytes Absolute Auto 0.5 0.1-1.2 X10*3/uL Eosinophils Absolute Auto 0.1 0.0-0.4 X10*3/u L Basophils Absolute Auto 0.0 0.0-0.2 X10*3/uL NRBC Abs Auto 0.000 0.0-0.012 X10*3/uL Comprehensive [place]. Panel Fa st Reviewed date:11/05/2024 04:35:39 PM Interpretation: Performing Lab:[facility], [address] [place] [phone] Notes/Report: Sodium 140 135-145 mmol/L Potassium 4.1 3.3-5.1 mmol/L Chloride 108 96-108 mmol/L Carbon Dioxide 26 22-29 mmol/L Anion Gap 10 12-20 Blood Urea Nitrogen 14 9-16 mg/dL Creatinine 0.89 0.5-1.4 mg/dL Estimated Glomerular Filt Rate > 60 Chronic Kidney Disease: Estimated GFR < 60 mL/min/1.73m2 Severe Kidney Disease: Estimated GFR < 15 mL/min/1.73m2 Glucose Fasting 88 60-99 mg/dL Calcium 9.0 8.4-10.2 mg/dL Bilirubin Total 0.4 0.0-1.0 mg/dL Aspartate Amino Transferase 36 5-31 U/L Alanine Aminotransferase 19 0-31 U/L Total Protein 8.9 6.5-8.0 g/dL Albumin Level 4.1 3.5-5.0 g/dL Alkaline Phosphatase 49 39-117 U/L Lipid Panel Reviewed date:11/05/2024 02:14:13 PM Interpretation: Performing Lab:[address] [phone] Notes/Report: Triglycerides 222 <150 mg/dL Desirable Triglyceride: less than 150 mg/dL Borderline High Triglyceride 150-199 mg/dL High Triglyceride: 200-499 mg/dL Very High Triglyceride: greater than or equal to 5OO mg/dL Cholesterol 212 <200 mg/dL Desirable Cholesterol: less than 200 mg/dL Borderline High Cholesterol: 200-239 mg/dL High Cholesterol: greater than 239 mg/dL LDL Cholesterol Calculated 126 <100 mg/dL Desirable LDL: less than 100 mg/dL Near Optimal/Above Optimal LDL: 110-129 mg/dL Borderline High LDL: 130-159 mg/dL High LDL: 160-189 mg/dL Very High LDL: greater than or equal to 190 mg/dL HDL Cholesterol 42 >40 mg/dL Desirable HDL: greater than 40 mg/dL Note: This HDL assay may give artificially low results in patients with liver disease. Vitamin D 25-OH Total Reviewed date:11/05/2024 04:36:31 PM Interpretation: Performing Lab:[address] [phone] Notes/Report: Vitamin D 25-OH Total 73.7 >30 ng/mL Health Based Reference Values* < 20 ng/mL Deficient 20-30 ng/mL Insufficient > 30 ng/mL Sufficient *Jethro CRISOSTOMO. N Engl J Med. 2007;357:266-280 There is no well-established upper level of normal vitamin D levels. Some laboratories use 50 ng/mL as an upper limit of normal. However, toxicity is patient-dependent and may occur at any level. Careful correlation with the patient's presentation is necessary and, if there is concern for vitamin D toxicity, treatment should be considered irrespective of the serum level. Care must be taken in interpreting Vitamin [...] confirmed with another method such as LC-MS/MS. REASON FOR VISIT fasting labs Immunizations Vaccine Route Administration Date Status Comme nts Influenza High Dose IM Intramuscular 11/05/2024 Administer ed Encounters Encounter Location Date Provider Diagnosis Anton Reyes MD [address] [facility] [address] [place] [phone] 11/05/2024 Anton Reyes Blood tests for routine general physical examination Z00.00 ; Lymphocytosis (symptomatic) D72.820 ; Essential hypertension I10 ; Vitamin D deficiency E55.9 and Encounter for administration of vaccine Z23 Assessments Encounter Date Diagnosis (ICD Code) Assessment Notes Treatment Notes Treatment Clinical Notes Section Notes 11/05/2024 Blood tests for routine general physical examination (ICD-10 - Z00.00) 11/05/2024 Lymphocytosis (symptomatic) (ICD-10 - D72.820) 11/05/2024 Essential hypertension (ICD-10 - I10) 11/05/2024 Vitamin D deficiency (ICD-10 - E55.9) 11/05/2024 Encounter for administration of vaccine (ICD-10 - Z23) Plan Of Treatment Pending Test Test Name Order Date UA ClnCatch+Micro w/rflx Cult 11/05/2024 Next Appt Details Provider Name:Anton Pineda ier, 11/12/2024 02:30:00 PM, [address] [place] [address] Drive, [address], [place], [place], [phone], Progress Notes * Leilani YOUNG MDOB:[birth year] (69 yo F)Acc No.[id number]:11/05/2024 Progress Note Patient: Chantell Leilani KRISHNAMURTHY Provider: Darling Reyes MD :1955 A ge:69 Y S ex:Female Date:11/05/2024 Address:[address] [place], [place] [address], [phone] Subjective: * Chief Complaints: * 1 . Fasting labs. * Medical History: Objective: * Vitals: Assessment: * Assessment: 1. B lood tests for routine general physical examination - Z00.00 (Primary) 2 .?Lymphocytosis (symptomatic) - D72.820 3 . E ssential hypertension - I10? 4. V itamin D deficiency - E55.9 5 . E ncounter for administration of vaccine - Z23 Plan: * Treatment: 2. L ymphocytosis (symptomatic) L AB: UA ClnCatch+Micro w/rflx Cult (Collection Date & Time - 11/05/2024 08:00 AM) L AB: Complete Blood Count Auto Diff (Collection Date & Time - 11/05/2024 08:00 AM) L AB: Comprehensive [place]. Panel Fast (Collection Date & Time - 11/05/2024 08:00 AM) L AB: Lipid Panel (Collection Date & Time - 11/05/2024 08:00 AM) L AB: Vitamin D 25-OH Total (Collection Date & Time - 11/05/2024 08:00 AM) 3. E ssential hypertension L AB: UA ClnCatch+Micro w/rflx Cult (Collection Date & Time - 11/05/2024 08:00 AM) L AB: Complete Blood Count Auto Diff (Collection Date & Time - 11/05/2024 08:00 AM) L AB: Comprehensive [place]. Panel Fast (Collection Date & Time - 11/05/2024 08:00 AM) L AB: Lipid Panel (Collection Date & Time - 11/05/2024 08:00 AM) L AB: Vitamin D 25-OH Total (Collection Date & Time - 11/05/2024 08:00 AM) 4. V itamin D deficiency L AB: UA ClnCatch+Micro w/rflx Cult (Collection Date & Time - 11/05/2024 08:00 AM) L AB: Complete Blood Count Auto Diff (Collection Date & Time - 11/05/2024 08:00 AM) L AB: Comprehensive [place]. Panel Fast (Collection Date & Time - 11/05/2024 08:00 AM) L AB: Lipid Panel (Collection Date & Time - 11/05/2024 08:00 AM) L AB: Vitamin D 25-OH Total (Collection Date & Time - 11/05/2024 08:00 AM) * Immunizations: Influenza High Dose : 0.5 mL (Dose No:1) (Route: Intramuscular) given by Arlene Mcintyre , Office Staff on Right Deltoid * Procedure Codes: 3 6415 VENIPUNCT, ROUTINE*, 66536 FLU VACC PRSV FREE INC ANTIG, 83408 IMMUNIZATION ADMIN * * The named appointment provid er may or may not be the originator of this progress note, and it is not deemed complete until electronically signed by the appointment provider. Sign off status: Pending * Provider: Darling Reyes MD Date: 0 11/05/2024 Generated for Yana cantu/Nelly/Souravitting on: 11/05/2024 04:39 PM EDT
[2024-11-05 12:28] LABS: MANUAL DIFF FLAG NO
[2024-11-05 12:56] LABS: Hematocrit 37.7 % (37.0-47.0); Hemoglobin 12.4 g/dl (12.0-16.0); Imm Gran Abs Auto 0.01 X10*3/uL (0.00-0.03); Imm Gran Pct Auto 0.3 % (0.0-0.4); Lymphocytes Absolute Auto 1.6 X10*3/uL (1.2-4.9); Mean Corpuscular HGB Conc 32.9 g/dl (31.0-35.0); Mean Corpuscular Hemoglobin 30.1 pg (27.0-33.0); Mean Corpuscular Volume 91.5 fL (80.0-98.0); NRBC Abs Auto 0.000 X10*3/uL (0.0-0.012); NRBC Pct Auto 0.0 /100WBC (0.0-0.2); Platelet Count 198 X10*3/uL (160-400); Red Blood Count 4.12 X10*6/uL (4.20-5.50); White Blood Count 3.2 X10*3/uL (4.8-10.8)
[2024-11-05 13:00] LABS: Appearance Urine Clear; Glucose Urine UA Negative (Negative); PH 6.0 (5.0-9.0); Specific Gravity - Urine 1.010 (1.005-1.025)
[2024-11-05 13:18] LABS: Alanine Aminotransferase 19 U/L (0-31); Albumin Level 4.1 g/dL (3.5-5.0); Alkaline Phosphatase 49 U/L (39-117); Anion Gap 10 (12-20); Aspartate Amino Transferase 36 U/L (5-31); Blood Urea Nitrogen 14 mg/dL (9-16); Calcium 9.0 mg/dL (8.4-10.2); Carbon Dioxide 26 mmol/L (22-29); Chloride 108 mmol/L (96-108); Cholesterol 212 mg/dL (<200); Estimated Glomerular Filt Rate > 60; HDL Cholesterol 42 mg/dL (>40); Potassium 4.1 mmol/L (3.3-5.1); Sodium 140 mmol/L (135-145); Total Protein 8.9 g/dL (6.5-8.0); Triglycerides 222 mg/dL (<150)
--- OUTSIDE RECORDS SUMMARY | 2024-11-05 16:39 | XMS_ITS | Patient Health Record ---
Author Organization Anton Reyes MD Address [address] [place], [place] [id number] Care Team Providers Care Real Estate Representative Name Role Phone Anton Reyes Primary Care Provider Allergies Allergen (clinical drug ingredient) Drug/Non Drug Allergy documented on EMR Reaction Allergy Type Onset Date Status sulfamethoxazole / trimethoprim Bactrim rash Drug Allergy Active Results Component Value Reference Range Notes UA ClnCatch+Micro w/rflx Cul t (Not yet reviewed by provider) Interpretation: Performing Lab:[facility], [address] [place] [phone] Notes/Report: [id number] Urine, Clean Catch Color Urine Yellow Appearance Urine Clear PH 6.0 5.0-9.0 Glucose Urine UA Negative Negative mg/dL Urine Blood Negative Negative Specific [place] - Urine 1.010 1.005-1.025 Urine Protein Negative [...] ff Reviewed date:11/05/2024 01:02:05 PM Interpretation: Performing Lab:[facility], [address] [place] [phone] Notes/Report: White Blood Count 3.2 4.8-10.8 X10*3/uL [...] 0.0-0.2 /100WBC Neutrophils Absolute Auto 1.1 2.0-8.3 x10*3/uL Imm Gran Abs Auto 0.01 0.00-0.03 X10*3/uL Lymphocytes Absolute Auto 1.6 1.2-4.9 X10*3/uL Monocytes Absolute Auto 0.5 0.1-1.2 X10*3/uL Eosinophils Absolute Auto 0.1 0.0-0.4 X10*3/uL Basophils Absolute Auto 0.0 0.0-0.2 X10*3/uL NRBC Abs Auto 0.000 0.0-0.012 X10*3/uL Comprehensive [place]. Panel Fa st Reviewed date:11/05/2024 04:35:39 PM Interpretation: Performing Lab:[facility], [address] [place] [phone] Notes/Report: Sodium 140 135-145 mmol/L Potassium 4.1 [...] Panel Reviewed date:11/05/2024 02:14:13 PM Interpretation: Performing Lab:[facility], [address] [place] [phone] Notes/Report: Triglycerides 222 <150 mg/dL Desirable Triglyceride: [...] Total Reviewed date:11/05/2024 04:36:31 PM Interpretation: Performing Lab:[facility], [address] [place] [phone] Notes/Report: Vitamin D 25-OH Total 73.7 >30 [...] confirmed with another method such as LC-MS/MS. Occult Blood, Stool, Guaiac Reviewed date:12/27/2023 03:08:44 PM Interpretation:Negative Performing Lab: Notes/Report: Negative Occult Blood, Stool, Guaiac Neg MM tomosynthesis screening B I Reviewed date:12/19/2023 12:45:54 PM Interpretation: Performing Lab: Notes/Report: [facility]'s [address] [place] [address] Mammography Report Signed Patient: Leilani Young MR#: [id number] 593 : 1955 Acct:[id number] Age/Sex: 68 / F ADM Date: 12/05/23 Loc: HO.MAMMO Attending Dr: Anton Reyes MD Ordering Physician: Anton Reyes MD Results: 1Ne gative Date of Service: 12/05/23 Follow Up: 1 Year From [facility] Mammogram Procedure(s): MM tomosynthesis screening BI Accession Number(s): [id number] cc: Anton Reyes MD EXAMINATION: MM SCREENING DIGITAL BREAST TOMOSYNTHESIS, BILATERAL CLINICAL INFORMATION: Screening. Asymptomatic. COMPARISON: Mammography: Comparison is made with available priors TECHNIQUE: Digital breast mammography with tomosynthesis is performed in both the craniocaudal and mediolateral oblique views along with computer-aided detection (CAD). FINDINGS: The breasts are heterogeneously dense, which may obscure small masses (ACR BI-RADS breast composition Category c). There are no significant masses, abnormal calcifications, or other abnormalities. MM/MM tomosynthesis screening BI IMPRESSION: No mammographic evidence of malignancy. ASSESSMENT: BI-RADS BI-RADS 1 - Negative RECOMMENDATION: Routine annual mammography screening. 1 year F/U This examination should not preclude the clinical evaluation of a suspicious palpable abnormality. This patient's information was entered into a reminder system with a target due date for their next mammogram. Electronically signed by: Tigist Grant DO 12/17/2023 12:14 PM EDT Dictated By: Tigist Grant DO Signed By: <Electronically signed by Tigist Grant DO in OV> 12/17/23 1214 DD/ 1302 TD/TT: 12/05/23 1326 Coal Deliverer: [facility] [address] [place] [address] Mammography Report Signed Patient: Merna Young MR#: [id number] 593 : 1955 Acct:[id number] Age/Sex: 68 / F ADM Date: 12/05/23 Loc: HO.MAMMO Attending Dr: Anton Reyes MD Ordering Physician: Anton Reyes MD Results: 1Ne gative Date of Service: 12/05/23 Follow Up: 1 Year From [facility] Mammogram Procedure(s): MM tomosynthesis screening BI Accession Number(s): [id number] cc: Anton Reyes MD EXAMINATION: MM SCREENING DIGITAL BREAST TOMOSYNTHESIS, BILATERAL CLINICAL INFORMATION: Screening. Asymptomatic. COMPARISON: Mammography: Compari son is made with available priors TECHNIQUE: Digital breast mammography with tomosynthesis is performed in both the craniocaudal and mediolateral oblique views along with computer-aided detection (CAD). FINDINGS: The breasts are heterogeneously dense, which may obscure small masses (ACR BI-RADS breast composition Category c). There are no significant masses, abnormal calcifications, or other abnormalities. MM/MM tomosynthesis screening BI IMPRESSION: No mammographic evidence of malignancy. ASSESSMENT: BI-RADS BI-RADS 1 - Negative RECOMMENDATION: Routine annual mammography screening. 1 year F/U This examination nomi uld not preclude the clinical evaluation of a suspicious palpable abnormality. This patient's information was entered into a reminder system with a target due date for their next mammogram. Electronically eleanor d by: Tigist Grant DO 12/17/2023 12:14 PM EDT RP Dictated By: Tigist Grant DO Signed By: <Electronically signed by Tigist Grant DO in OV> 12/17/23 1214 DD/ 1302 TD/TT: 12/05/23 1326 Coal Deliverer: XR DEXA axial skeleton Reviewed date:12/09/2023 11:03:06 AM Interpretation: Performing Lab: Notes/Report: [facility]'[address] [place], [place] [address] Mammography Report Signed Patient: Leilani Young MR#: [id number] 593 : 1955 Acct:[id number] Age/Sex: 68 / F ADM Date: 12/05/23 Loc: HO.MAMMO Attending Dr: Anton Reyes MD Ordering Physician: Anton Reyes MD Results: Date of Service: 12/05/23 Follow Up: Procedure(s): XR DEXA axial skeleton Accession Number(s): [id number] cc: Anton Reyes MD EXAMINATION: BONE DENSITOMETRY CLINICAL INDICATION: Age-related osteoporosis without current pathological fracture. COMPARISON: This is the patient's baseline examination. TECHNIQUE: Using a Arpe[employer]i DXA System (software version: 13.1) manufactured by [employer], dual-energy x-ray absorptiometry was performed of the lumbar spine and left hip. The images are of good technical quality. Summary results are attached. FINDINGS: LEFT FEMUR, NECK: BMD 0.863 g/cm2, Z-score 0.6, T-score -1.3, osteopenia. LEFT FEMUR, TOTAL: BMD 0.818 g/cm2, Z-score 0.1, T-score -1.5, osteopenia. AP SPINE L1-L4: BMD 0.980 g/cm2, Z-score 0.3, T-score -1.7, osteopenia. IDENTIFIED RISK FACTORS: Rheumatoid arthritis, osteoporosis, menopause, hysterectomy, bilateral oophorectomy. HISTORY OF FRACTURE: None listed. MEDICATIONS: Calcium supplements or multivitamin, vitamin D, bisphosphonate. MM/XR DEXA axial skeleton IMPRESSION: 1. DIAGNOSIS: Osteopenia based on the lowest T-score value of -1.7 in the lumbar spine applying World Health Organization criteria. 2. 10-YEAR FRACTURE RISK PREDICTION, FRAX: Not performed in this patient on estrogen or bone building treatments. 3. Treatment Recommendations: NOF guidelines recommend consideration for treatment in postmenopausal women and men age 50 and older presenting with the following: -A hip or vertebral (clinical or morphometric) fracture. -T-score less than or equal to -2.5 at the femoral neck or spine after appropriate evaluation to exclude secondary causes. -Low bone mass at the hip or spine and a 10-year fracture probability by FRAX of greater than or equal to 3% for hip fracture or greater than or equal to 20% for major osteoporotic fracture based on the [place] adapted WHO algorithm. 4. Other Recommendations: All treatment decisions require clinical judgment and consideration of individual patient factors, including patient preferences, comorbidities, previous drug use, risk factors not captured in the FRAX model (e.g. frailty, falls, vitamin D deficiency, increased bone turnover, interval significant decline in bone density) and possible under or overestimation of fracture risk by FRAX. Additional medical evaluation for secondary cause of low bone mineral density may be appropriate. FUTURE SCAN RECOMMENDATION: People with diagnosed cases of osteoporosis or at high risk for fracture should have regular bone mineral density tests. For patients eligible for Medicare, routine testing is allowed once every 2 years. The testing frequency can be increased to one year for patients who have rapidly progressing disease, those who are receiving or discontinuing medical therapy to restore bone mass, or have additional risk factors. Electronically signed by: Joni Amaya MD 12/06/2023 02:37 PM EDT Dictated By: Joni Amaya MD Signed By: <Electronically signed by Joni Amaya MD in OV> 12/06/23 1437 DD/ 1330 TD/TT: 12/05/23 1348 Coal Deliverer: [facility] [place] [facility] [address] [place] [address] [place] [address] Mammography Report Signed Patient: Merna Young MR#: [id number] 593 : 1955 Acct:[id number] Age/Sex: 68 / F ADM Date: 12/05/23 Loc: AMBERO Attending Dr: Anton Reyes MD Ordering Physician: Anton Reyes MD Results: Date of Service: 12/05/23 Follow Up: Procedure(s): XR DEX A axial skeleton Accession Number(s): [id number] cc: Anton Reyes MD EXAMINATION: BONE DENSITOMETRY CLINICAL INDICATION: Age-related osteoporosis without current pathological fracture. COMPARISON: This is the patient' s baseline examination. TECHNIQUE: Using a Arpeggi DXA System (software version: 13.1) [employer], dual-energy x-ray absorptiometry was performed of the lumbar spine and left hip. The images are of good technical quality. Summary results are attached. FINDINGS: LEFT FEMUR, NECK: BMD 0.863 g/cm2, Z-score 0.6, T-score -1.3, osteopenia. LEFT FEMUR, TOTAL: BMD 0.818 g/cm2, Z-score 0.1, T-score -1.5, osteopenia. AP SPINE L1-L4: BMD 0.980 g/cm2, Z-score 0.3, T-score -1.7, osteopenia. IDENTIFIED RISK FACTORS: Rheumatoid arthritis , osteoporosis, menopause, hysterectomy, bilateral oophorectomy. HISTORY OF FRACTURE: None listed. MEDICATIONS: Calcium supplements or multivitamin, vitamin D, bisphosphonate. MM/XR DEXA axial skeleton IMPRESSION: 1. DIAGNOSIS: Osteopenia based on the lowest T-score value of -1.7 in the lumbar spine applying World Health Organization criteria. 2. 10-YEAR FRACTURE RISK PREDICTION, FRAX: Not performed in this patient on estrogen or bone building treatments. 3. Treatment Recommendations: NOF guidelines recommend consideration for treatment in postmenopausal women and men age 50 and older presenting with the following: -A hip or vertebral (clinical or morphometric) fracture. -T-score less than o r equal to -2.5 at the femoral neck or spine after appropriate evaluati on to exclude secondary causes. -Low bone mass at th e hip or spine and a 10-year fracture probability by FRAX of greater t dhillon or equal to 3% for hip fracture or greater than or equal to 20% for major osteoporotic fracture based on the [place] adapted WHO algorithm. 4. Other Recommendations: All treatment decisions require clinical judgment and consideration of individual patient factors, including patient preferences, comorbidities, previous drug use, risk factors not captured in the FRAX model (e.g. frailty, falls, vitamin D deficiency, increased bone turnover, interval significant decline in bone density) and possible under o r overestimation of fracture risk by FRAX. Additional medical evaluation for secondary cause of low bone mineral density may be appropriate. FUTURE SCAN RECOMMENDATION: People with diagnose d cases of osteoporosis or at high risk for fracture should have regular bone mineral density tests. For patients eligible for Medicar e, routine testing is allowed once every 2 years. The testing frequenc y can be increased to one year for patients who have rapidly progressing disease, those who are receiving or discontinuing medica l therapy to restore bone mass, or have additional risk factors. Electronically eleanor d by: Joni Amaya MD 12/06/2023 02:37 PM EDT RP Dictated By: Joni Amaya MD Signed By: <Electronically signed by Joni Amaya MD in OV> 12/06/23 1437 DD/ 1330 TD/TT: 12/05/23 1348 Coal Deliverer: RR Reason For Referral No Information Medications Medication SIG (Take, Route, Frequency, Duration) Notes Start Date End Date Status [place] 0.025 % 1 drop into affected eye Ophthalmic Twice a day Not-Takin g Flonase 50 MCG/ACT 1 spray in each nost ril Nasally Once a day for 30 day(s) 07/06/2014 Not-Taking Diprolene AF 0.05 % 1 application to affected area Externally Once a day for 14 days 07/16/2011 Not-Takin g ProAir HFA 108 (90 Base) MCG/ACT 2 puffs as needed Inhalation every 4 hrs for 30 days 08/31/2013 Not-Taking Mupirocin Calcium 2 % 1 application Exte rnally Twice a day for 5 day(s) 05/15/2022 Active Alendronate Sodium 70 MG TAKE ONE TABLET BY MOUTH ONCE A WEEK. TAKE 30 MINUTE BEFORE FIRST FOOD & BEVERAGE OF THE DAY. TAKE WITH 8 OZ OF WATER for 30 days Active Valsartan-hydroCHLOROthi azide 80-12.5 MG TAKE ONE TABLET BY MOUTH EVERY DAY for 30 Active Naprosyn 500 MG 1 tablet as needed Orally every 12 hrs for 90 days 02/14/2012 Not-Taking Xiidra 5 % 1 drop into affected eye Ophthalmic Twice a day Active Immunizations Vaccine Route Administration Date Status Comme nts Flu Vaccine IM Intramuscular 12/21/2010 Administered Flu Vaccine IM Intramuscular 12/11/2011 Administered Flu Vaccine IM Intramuscular 12/26/2012 Administered Fluarix Quadrivalent IM Intramuscular 11/26/2013 Adminadelinee red zFluzone Quadrivalent IM Intramuscular 12/23/2014 Administered TDaP IM Intramuscular 08/24/2017 Administered pt was given the vaccine at [facility] in [place] PPSV23 (Pnemovax) IM Intramuscular 10/01/2017 Administered Shingrix IM Intramuscular 10/03/2017 Administered Fluarix Quadrivalent IM Intramuscular 11/28/2017 Adminadelinee red Shingrix IM Intramuscular 12/06/2017 Administered Fluarix Quadrivalent IM Intramuscular 11/27/2018 Adminjason red Prevnar 13 IM Intramuscular 10/29/2019 Administered SARS-COV-2 Moderna Unknown 05/10/2020 Administered SARS-COV-2 Moderna Unknown 06/09/2020 Administered SARS-COV-2 Moderna Unknown 12/23/2020 Administered Fluarix Quadrivalent Unknown 11/25/2020 Administered Influenza High Dose IM Intramuscular 11/05/2022 Administer ed Influenza High Dose IM Intramuscular 11/05/2023 Administer ed Influenza High Dose IM Intramuscular 11/05/2024 Administer ed Flu Vaccine Unknown 11/26/2013 Pending Tetanus Unknown 08/24/2017 Pending Social History Tobacco Use: Social History Observation [...] ast year? No Points 0 Interpretation Negative Problems Problem Type SNOMED Code ICD Code Onset Dates Problem Status W/U Status Risk Notes Problem Lymphocytosis (91965203) Lymphocytosis (symptomatic) (D72.820) Active confirmed Problem 95579898 Age-related oste oporosis without current pathological fracture (M81.0) Active confirmed Problem 34454508 Vitamin D defici ency (E55.9) Active confirmed Problem 307281488 Osteopenia (M85.80) Active confirmed Problem 51573526 Essential hypert ension (I10) Active confirmed Problem 762872562 Neutropenia, uns pecified type (D70.9) Active confirmed Problem 54646951 Sjogrens syndrom e (M35.00) Active confirmed Problem 325333585 Hypergammaglobul inemia (D89.2) Active confirmed Problem 05219018 Sjogren's syndro me, with unspecified organ involvement (M35.00) Active confirmed Problem 425271543 Generalized osteoarthritis (M15.9) Active confirmed Vital Signs Blood pressure diastolic 72 mm Hg 05/12/2024 santa ght is up 6 pounds since 11-12-23 Height 64 in 05/12/2024 weight is up 6 pounds since 11-12-23 Blood pressure systolic 104 mm Hg 05/12/2024 weig ht is up 6 pounds since 11-12-23 Weight 128 lbs 05/12/2024 weight is up 6 pounds since 11-12-23 BMI 21.97 kg/m2 05/12/2024 weight is up 6 pounds since 11-12-23 Encounters Encounter Location Date Provider Diagnosis Anton Reyes MD [address] [place] [address] [address] [place] [id number] 11/05/2024 Anton Reyes Blood tests for routine general physical examination Z00.00 ; Lymphocytosis (symptomatic) D72.820 ; Essential hypertension I10 ; Vitamin D deficiency E55.9 and Encounter for administration of vaccine Z23 Anton Reyes MD [address] [place] [address] [address] [place] [id number] 11/12/2023 Anton Reyes Age-related osteoporosis without current pathological fracture M81.0 ; Annual physical exam Z00.00 ; Vitamin D deficiency E55.9 ; Neutropenia, unspecified type D70.9 ; Essential hypertension I10 ; Depression screening Z13.31 and Colon cancer screening Z12.11 Anton Reyes MD [address] [place] [id number] 05/12/2024 Anton Reyes Essential hypertensi on I10 and Age-related osteoporosis without current pathological fracture M81.0 Anton Reyes MD [address] [place] [address] [address] [place] [id number] 11/14/2023 Anton Reyes Colon cancer screeni ng Z12.11 Assessments Encounter Date Diagnosis (ICD Code) Assessment Notes Treatment Notes Treatment Clinical Notes Section Notes 11/05/2024 Blood tests for routine general physical examination (ICD-10 - Z00.00) 11/05/2024 Lymphocytosis (symptomatic) (ICD-10 - D72.820) 11/12/2023 Age-related osteoporosis without current pathological fracture (ICD-10 - M81.0) order faxed to [facility] dept 11/12/2023 Annual physical exam (ICD-10 - Z00.00) labs reviewed and discussed with patient 05/12/2024 Essential hypertension (ICD-10 - I10) well controlled, will continue current regiment 11/14/2023 Colon cancer screening (ICD-10 - Z12.11) 11/05/2024 Essential hypertension (ICD-10 - I10) 11/12/2023 Vitamin D deficiency (ICD-10 - E55.9) taking calcium with vit d and level is 60. enciuraged to continue walking, will continue current regiment 05/12/2024 Age-related osteoporosis without current pathological fracture (ICD-10 - M81.0) doing much better on the meds and with weights, will continue current regiment 11/05/2024 Vitamin D deficiency (ICD-10 - E55.9) 11/12/2023 Neutropenia, unspecified type (ICD-10 - D70.9) stable, will continue to monitor 11/05/2024 Encounter for administration of vaccine (ICD-10 - Z23) 11/12/2023 Essential hypertension (ICD-10 - I10) doing well on one half tab, at goal, will continue current regiment regiment 11/12/2023 Depression screening (ICD-10 - Z13.31) negative screen 11/12/2023 Colon cancer screening (ICD-10 - Z12.11) sent home with stool cards will retun to office when complete Plan Of Treatment Pending Test Test Name Order Date XR CHEST 2 VIEW PA & LAT 08/31/2013 XR CHEST 2 VIEW PA & LAT 12/28/2013 BONE DENSITY DEXA 11/12/2023 BONE DENSITY DEXA 10/24/2020 UA ClnCatch+Micro w/rflx Cult 11/05/2024 Next Appt Details Provider Name:Anton esquivel, 11/12/2024 02:30:00 PM, [address] [place] [address], [address], [place], [place], [id number], Insurance Providers Payer Name Payer Address Payer Phone Subscriber Number Group Number Insured Name Patient Relationship to Insured Coverage Start Date Coverage End Date [employer] [address] [place], [place] [phone] [id number] Leilani Young Self - patient is the insured Medical (General) History Medical History History ICD Code colonoscopy 2010. due in 10 years; Colonoscopy done 11/22/[address] Lynn repeat in 5 years due to hemorrhoid bleeding(2021) Hx ovarian Cyst - removed in 2012
== END 2024-11-05 12:26 | disposition home or self-care (01) ==
LOC: HO.LNP 12:25
PROVIDERS: Visit Provider Internal Medicine
DX: Z00.00 Encounter for general adult medical examination without abnormal findings (principal); D72.820 Lymphocytosis (symptomatic); I10 Essential (primary) hypertension; E55.9 Vitamin D deficiency, unspecified
CPT/HCPCS: 80053; 80061; 81001; 82306; 85025

== ENCOUNTER 2024-12-17 14:42 | Outpatient (REF) | payer MEDICARE, SELFPAY | END 2024-12-17 14:43 | disposition home or self-care (01) | LOC: HO.MAMMO 14:42 | PROVIDERS: PCP Internal Medicine; Visit Provider Internal Medicine | DX: Z12.31 Encounter for screening mammogram for malignant neoplasm of breast (principal) | CPT/HCPCS: 77063; 77067 ==

== ENCOUNTER → 2024-12-17 15:00 | Outpatient (BNV) | payer MEDICARE, SELFPAY | PROVIDERS: PCP Internal Medicine; Visit Provider Internal Medicine | DX: Z12.31 Encounter for screening mammogram for malignant neoplasm of breast (principal) | CPT/HCPCS: 77063; 77067 ==